=== PATIENT | female | born 1980 | race Caucasian/White ===

== ENCOUNTER 2023-10-15 10:40 | Outpatient (CLI) | payer BC, SELFPAY ==
--- OUTSIDE RECORDS SUMMARY | 2023-10-15 10:47 | XMS_ITS | Clinical Summary ---
Author Organization [facility] [email or web address] [facility] Address [place], [place] [address] Care Team Providers Care Hydrotreater Operator Name Role Phone Sayra Gadnhi DO Primary Care Provider Pramod Butler MD Unavailable Jennifer Avila MD Unavailable Sushma Trivedi WEB DESIGN INSTRUCTOR Unavailable Yessica Rodriguez RN Unavailable Lesa Wetzel RD Unavailable [phone] Kira Cooley Unavailable [phone] Allergies Active Allergy Reactions Criticality Noted Date Comments Kelly Hives High 05/21/2009 Hydromorphone Itching Medium 05/31/2006 Per patient, happened when she was getting significant doses on a [employer] pump Hydromorphone-Guaifenes in Rash 08/03/2022 Meperidine Rash,Itching Low 05/21/2009 Morphine Rash,Itching Low 05/21/2009 When on [employer] with 'high doses' per patient Nsaids (Non-Steroidal Anti-Inflammatory Drug) Other - Describe In Comment Field 09/28/2022 This patient has a history of a Samaria-en-Y gastric bypass. AVOID NSAIDs and aspirin due to risk of gastric and/or G-J anastomotic ulcers. If Lisa must be on short course of NSAIDs or aspirin, use enteric coated if possible and use PPI // Jerri Adam RN, Bariatric Nurse Clinician, [facility] Weight Management 09/28/2022. Medications Medication Sig Dispensed Refills Start Date End Date Status multivitamin pediatric chewable tabletIndications: Achlorhydria,Malab sorption due to intolerance, not elsewhere classified,S/P gastric bypass One tablet twice daily for an adult dose 0 Active mecobalamin, vitamin B12, 1,000 mcg TbDiIndications:Ac hlorhydria,Malabso rption due to intolerance, not elsewhere classified,S/P gastric bypass Place 1,000 mcg under the tongue once daily. 0 3 Active ondansetron (ZOFRAN ODT) 4 mg disintegrating tabletIndications: Depression with anxiety Place 1 Tablet (4 mg) on the tongue every 8 hours if needed for Nausea/Vomiting. 30 Tablet 1 3 Active atenoloL (TENORMIN) 25 mg tabletIndications: HTN (hypertension) Take 1 Tablet (25 mg) by mouth once daily. 90 Tablet 3 3 Active omeprazole (PRILOSEC) 40 mg Delayed-Release capsuleIndications :S/P gastric bypass Take 1 Capsule (40 mg) by mouth once daily before a meal. 90 Capsule 3 3 Active nystatin (MYCOSTATIN) topical creamIndications:I ntertriginous candidiasis,S/P gastric bypass Apply topically to affected area(s) two times daily. 30 g 3 Active nystatin powder (MYCOSTATIN) powderIndications: Intertriginous candidiasis,S/P gastric bypass Apply 1 Strip topically to affected area(s) 4 times daily if needed (rash). 60 g 3 3 Active cranberry/B.coagul an/C/calcium (CRANBERRY-PROBIOT IC ORAL) 3 Active valACYclovir (VALTREX) 1 gram tabletIndications: Herpes labialis Take 2 Tablets (2 g) by mouth two times daily. 4 Tablet 12 4 Active cholecalciferol, Vitamin D3, (Vitamin D-3) 2,000 unit tablet Take 2,000 units by mouth once daily. Active polyethylene glycoL (Miralax) 17 gram/scoop powderIndications: S/P gastric bypass Measure 17g in the cap provided and dissolve completely in 8 ounces of liquid as directed and drink once a day. Recommend using MiraLax in the first water bottle of the day. If no results, then increase to 2-3 doses per day until a bowel movement 714 g 3 4 Active methocarbamoL (ROBAXIN) 750 mg tabletIndications: Arthralgia, unspecified joint,Myalgia Take 1 tab twice daily. 60 Tablet 2 4 Active diclofenac topical (VOLTAREN) 1 % gelIndications:Acu te right-sided low back pain with right-sided sciatica Apply 4 g topically to affected area(s) 4 times daily if needed (back pain). 200 g 3 4 Active buPROPion (WELLBUTRIN XL) 300 mg Extended-Release tabletIndications: Depression with anxiety Take 1 Tablet (300 mg) by mouth once daily. 90 Tablet 3 4 Active venlafaxine (EFFEXOR XR) 150 mg Extended-Release capsuleIndications :Adjustment disorder with mixed anxiety and depressed mood Take 1 Capsule (150 mg) by mouth once daily with evening meal. 90 Capsule 3 4 Active gabapentin (NEURONTIN) 300 mg capsuleIndications :Lumbar radiculopathy Take 1 Capsule (300 mg) by mouth at bedtime. 30 Capsule 2 4 Active hydrOXYzine HCL (ATARAX) 25 mg tabletIndications: Adjustment disorder with mixed anxiety and depressed mood TAKE 1-2 TABLETS (25-50 MG) BY MOUTH EVERY 6 HOURS IF NEEDED FOR ANXIETY. 30 Tablet 4 Active acetaminophen SR (TYLENOL ARTHRITIS) 650 mg Extended-Release tabletIndications: Arthralgia, unspecified joint,Myalgia TAKE 2 TABLETS (1,300 MG) BY MOUTH EVERY 8 HOURS. MAX ACETAMINOPHEN DOSE: 4000MG IN 24 HRS. 100 Tablet 4 Active acetaminophen SR (TYLENOL ARTHRITIS) 650 mg Extended-Release tabletIndications: Arthralgia, unspecified joint,Myalgia Take 2 Tablets (1,300 mg) by mouth every 8 hours. Max acetaminophen dose: 4000mg in 24 hrs. 100 Tablet 1 4 024 Discontinued hydrOXYzine HCL (ATARAX) 25 mg tabletIndications: Adjustment disorder with mixed anxiety and depressed mood Take 1-2 Tablets (25-50 mg) by mouth every 6 hours if needed for Anxiety. 30 Tablet 2 4 024 Discontinued NaCl 0.9% 1000 mL IV solutionIndication s:Abdominal pain, epigastric Infuse 1000ml per hour at office visit. 1000 mL 4 024 cephalexin (KEFLEX) 500 mg capsuleIndications :Acute cystitis with hematuria Take 1 Capsule (500 mg) by mouth two times daily for 10 days. 20 Capsule 4 024 phenazopyridine (PYRIDIUM) 100 mg tabletIndications: Acute cystitis with hematuria Take 1 Tablet (100 mg) by mouth three times daily after meals for 2 days. 6 Tablet 4 024 Active Problems Patient Care Coordination No te Formatting of this note is d ifferent from the original. Weight Management - Adult Surgical Program Patient Received Binder: Yes Part of KTYA Program: no BEP or GS Patient: No Initial Consult / Established Care 08/15/[address] Pramod Deal RN Intake: Wt Readings from Last 1 Encounters: 08/19/21 116.6 kg (257 lb) lbs, Ht Readings from Last 1 Encounters: 08/19/21 1.575 m (5' 2.01) , Body mass index is 46.99 kg/m??. Planned Operation Samaria-en-Y Gastric Bypass Payor: MEDICAID [place] / Plan: MEDICAID / Product Type: *No Product type* / Insurance requirements:Pre-surgery medical clearance Est. Pgm Completion: ~ October, Procedure Location: [facility] Co-morbidities: hypertension Orders: Labs Yes Imaging / Procedures NA Pre-Surgery Program Consults: - Registered Dietitian 3 - Psychological Evaluation: TBD Referrals: Yes - - PT: -Tobacco Cessation: reports that she quit smoking about 9 years ago. Her smoking use included cigarettes. She has a 3.75 pack-year smoking history. She has never used smokeless tobacco. Future Appointments Date Time Provider Department Center 09/09/2021 10:30 AM Lesa Wetzel, SRIKANTH ANBWBA ANBW Problem Noted Date Diagnosed Date Medical cannabis use 06/30/2023 S/P robotic samaria-en-y gastri c bypass, takedown of previous Joy fundoplication, hiatal hernia repair 09/23/2022 Overview: Dr. Butler Morbid obesity with BMI of 45.0-49.9, adult 07/28 Screening for endocrine, metabolic and immunity disorder 08/15/2021 Severe episode of recurrent major depressive disorder, without psychotic features 05/05/2021 Benign essential tremor 05/05/2021 Vision loss of right eye 09/30/2020 Overview: 07/2020, spontaneous bleed. Followed by ophthalmology COVID-19 virus infection 02/15/2020 Left elbow pain 04/26/2019 Contusion of left elbow 04/26/2019 Contusion of left ulnar nerve 04/26/2019 Numbness and tingling 07/13/2018 Carpal tunnel syndrome on left 07/13/2018 Carpal tunnel syndrome on right 07/13/2018 Trigger finger, right middle finger 06/15/2018 Thumb pain, left 06/15/2018 Delayed wound healing 12/15/2017 Overview: Right breast wound, s/p cyst removal Epidermal inclusion cyst 10/25/2017 Controlled substance agreement signed 08/12/2017 Cyst, breast, right 02/25/2017 Fluid level behind tympanic membrane of left ear 07/08/2016 Decreased hearing of left ear 07/08/2016 Leucocytosis 12/03/2015 HTN (hypertension) 12/02/2015 Gastroesophageal reflux disease without esophagi tis 12/02/2015 H/O cold sores 12/02/2015 Chronic back pain 12/02/2015 Adjustment disorder with mixed anxiety and depre ssed mood 12/01/2015 Alcohol use disorder, mild, abuse 12/01/2015 Eczema of both hands 09/13/2015 Acute right-sided low back pain without sciatica 09/13/2015 Numbness and tingling in both hands 09/13/2015 Sepsis 05/29/2015 Palpitations 12/20/2013 Weight gain 12/20/2013 Sensorineural hearing loss, unilateral 3 Overview: left low frequency from 250 to 750 Hz Subjective tinnitus 06/28/2012 Elevated LFTs 03/07/2012 Depression with anxiety 02/19/2010 Recurrent cold sores 02/17/2008 HIATAL HERNIA 05/31/2006 STRESS 05/31/2006 CHRONIC CONSTIPATION 05/31/2006 Esophageal reflux 05/31/2006 Overview: EGD 04/2010 normal Resolved Problems Problem Noted Date Diagnosed Date Resolved Date Substance or medication-pam claudy anxiety disorder 12/01/2015 10/20/2021 Caffeine dependence 12/01/2015 05/05/19 Strep pharyngitis 05/29/2015 09/30/2020 Elevated blood pressure 12/20/201310/28 Family history of sudden hearing loss 06/28/2012 12/20/2013 Overview: brother and aunt with similar symptoms Abdominal pain, epigastric 03/07/2012 0 12/20/2013 Status post Joy fundoplic ation (without gastrostomy tube) procedure 05/09/2010 12/20/2013 Other disorder of menstruati on and other abnormal bleeding from female genital tract 11/24/2007 05/08/2011 Threatened premature labor, unspecified as to episode of care 01/15/2007 02/17/2008 Overview: Both prior pregnancies with PTL, delivered quickly, but at term. Breech presentation without mention of version, antepartum 01/15/2007 02/17/2008 Overview: Jeremie breech at admission 01/15/07 Encounters Date Type Department Care Team Description 10/02/2023 Refill [facility] [address] [place] [address] Sayra Gandhi DO Refill Request (Hydroxyzine Hcl, Acetaminophen Sr) 09/24/2023 8:20 AM CDT Office Visit [facility] [address] [place] [address] Melvin Hernández MD Musculoskeletal Problem (Back pain) 09/23/2023 8:13 PM CDT - 09/23/2023 9:05 PM CDT Emergency [facility] [address] [place] [address] Alexi Goldstein PA Acute cystitis with hematuria (Primary Dx) Discharge Disposition: Home Self Care 09/23/2023 Travel 09/21/2023 Orders Only [facility] [address] [place] [address] Ni Macias NP 1 scan: (1-Ord) 09/20/2023 09/20/2023 1:40 PM CDT - 09/20/2023 11:59 PM CDT Hospital Encounter [facility] [address] [place] [address] Ni Macias NP Abdominal pain, epigastric 09/20/2023 12:55 PM CDT Office Visit [facility] [address] [place] [address] Ni Macias NP Abdominal Pain 09/20/2023 11:30 AM CDT Office Visit [facility] [address] [place] [address] Sayra Gandhi DO Abdominal Pain (upper gastric pain, no energy, no appetite, lost 4 lbs since the weekend. dehydrated ) 09/20/2023 Travel 09/01/2023 9:20 AM CDT Orders Only [facility] [address] [place] [address] Lab, [facility] 09/01/2023 Travel 08/27/2023 Telephone [facility] [address] [place] [address] Sayra Gandhi DO Screening (Spine Center) 08/25/2023 8:19 AM CDT - 08/25/2023 11:59 PM CDT Hospital Encounter [facility] [address] [place] [address] Sayra Gandhi DO Acute right-sided low back pain with right-sided sciatica 08/25/2023 Travel 08/19/2023 8:14 PM CDT - 08/19/2023 9:13 PM CDT Emergency [facility] [address] [place] [address] Bonita Garcia, SHOLA Acute cystitis with hematuria (Primary Dx) Discharge Disposition: Home Self Care 08/19/2023 Travel 08/11/2023 7:30 AM CDT Office Visit [facility] [address] [place] [address] Sayra Gandhi, DO Medication Management 08/11/2023 Travel from Last 3 Months Immunizations Name Administration Dates Next Due COVID-19 vaccine (MicroPort ([place]) NTFoodFan 30mcg/0.3mL) PF, MDV 06/04/2020,05/14/2020 Hepatitis B (Adult) 04/23/2015,11/22/2014,1997 Influenza A (H1N1), Live Intranasal 01/24/2009 Influenza, IIV3 (Age >=3 years) 02/14/20 13,03/25/2012,01/24/2010, 009,02/14/2008,01/05/2007 Influenza, IIV4 12/29/2022, 2,01/23/2021, 018,01/29/2017,12/06/2015,11/22/2014, Influenza, IIV4 (=>6mos) MDV 01/07/2019 Influenza, Injectable, Mdck, Quadrivalent, W/preservative 12/20/2017 MMR 12/27/1992,07/24/1992,05/26/1982 Td (Age >=7 Years) 02/08/2002 Tdap 09/03/2018,05/22/2010 Tuberculin (PPD) 11/20/2015 Family History Medical History Relation Name Comments Anxiety disorder Brother 1 Depression Brother 1 Other Brother 1 Acoustic neurom as Anxiety disorder Brother 2 Depression Brother 2 No Known Problems Daughter Depression Father Hypertension Father Other Father ONE KIDNEY DUE TO ACCIDENT Cancer-breast Maternal Aunt Cancer Maternal Grandfather not [place] e what type of cancer Hyperlipidemia Maternal Grandfather Hypertension Maternal Grandfather Diabetes Maternal Grandmother Hypertension Maternal Grandmother Stroke Maternal Grandmother Leukemia Maternal Uncle Depression Mother Hypertension Mother Unknown Paternal Aunt estrandged - u nkown medical history Hyperlipidemia Paternal Grandfather Hypertension Paternal Grandfather Stroke Paternal Grandmother Unknown Paternal Uncle estrandged - unkown medical history Anxiety disorder Son 1 Depression Son 1 ADD / ADHD Son 2 Anxiety disorder Son 2 Depression Son 2 Relation Name Status Comments Brother 1 Alive Brother 2 Alive Daughter Alive Father Alive Maternal Aunt Alive Maternal Grandfather Maternal Grandmother Maternal Uncle Mother Alive Paternal Aunt Alive Paternal Grandfather Paternal Grandmother Paternal Uncle Alive Son 1 Alive Son 2 Alive Social History Tobacco Use Types Packs/Day Years Used Date Smoking Tobacco: Former Cigarettes 0.3 15 0 05/14/1997 - 05/14/2012 Passive Smoke Exposure: Never Smokeless Tobacco: Never Tobacco Cessation:Counseling Given: No Alcohol Use Standard Drinks/Week Comments Not Currently 0 (1 standard drink = 0.6 oz pure alcohol) 2014, quit drinking 03/2021 PHQ-2 Answer Date Recorded PHQ-2 TOTAL SCORE 3 11/13/2022 Social Connections Answer Date Recorded Frequency of Communication with Friends and Fami ly 0 06/30/2023 Financial Resource Strain Answer Date R ecorded Difficulty of Paying Living Expenses 2 06/30/2023 Difficulty of Paying Living Expenses 1 06/30/2023 Food Insecurity Answer Date Recorded Worried About Running Out of Food in the Last Ye ar 1 06/30/2023 Transportation Needs Answer Date Record ed Lack of Transportation (Medical) 1 06/30/2023 Housing Stability Answer Date Recorded Unable to Pay for Housing in the Last Year 1 06/30/2023 Sex and Gender Information Value Date Recorded Sex Assigned at Not on file Gender Identity Not on file Sexual Orientation Not on file Obstetrics History Para Term AB IAB SAB Ectopic Multiple Livin g Live Births 4 3 2 0 1 1 3 Date Outcome GA Total Labor Labor/2nd/3rd Weight Sex Type Anes PTL Bhavani A1 A5 Name Clin Term Term SAB Para Last Filed Vital Signs Vital Sign Reading Time Taken Comments Blood Pressure 108/73 09/24/2023 8:13 AM CDT Pulse 66 09/24/2023 8:13 AM CDT Temperature 36.9 ??C (98.4 ??F) 09/24/2023 8:13 AM CD T Respiratory Rate 20 09/23/2023 8:19 PM CDT Oxygen Saturation 99% 09/24/2023 8:13 AM CDT Inhaled Oxygen Concentration - - Weight 68.1 kg (150 lb 3.2 oz) 09/24/2023 8:13 A M CDT Height 157.5 cm (5' 2) 09/23/2023 8:19 PM CDT Body Mass Index 27.47 09/23/2023 8:19 PM CDT Plan of Treatment Upcoming Encounters Date Type Department Care Team (Late st Contact Info) Description 10/15/2023 11:20 AM CDT Office Visit [facility] [address] [place] [address] Melvin Hernández MD [address] [place] [address] Arrived 11/04/2023 7:50 AM CDT Office Visit [address] [address] Sayra Gandhi DO [address] [place] [address] 11/11/2023 8:40 AM CDT Office Visit [facility] [address] [place] [address] Melvin Hernández MD [address] [place] [address] Health Maintenance Due Date Last Done Comments Pneumococcal series for age 6-64 (1 of 2 - PCV) 11/28/1985 Depression screening for age 12+ 11/17/2023 11/16/2022, 11/13/2022, 11/13/2022, Additional history exists Influenza for age 9-49 11/28/2023 , 01/23/2022, 01/23/2021, Additional history exists BMI (ht and wt on same day) for age 18+ 04/23/2024 04/23/2023, 03/16/2023, 03/16/2023, Additional history exists Tetanus booster 09/03/2028 09/03/2018, 04/30, 02/08/2002 HIV for age 15-65 Completed 05/22/2010 Hepatitis C screening for ag e 18-79 Completed 05/22/2010 Tdap Completed 09/03/2018, 05/22/2010 COVID-19 vaccine series Completed 01/27/20, 08/10/2022, 12/23/2021, Additional history exists Procedures Procedure Name Priority Date/Time Associated Diagnosis Comments AMB EPIDURAL STEROID INJECTION Routine 10/15/2023 8:23 AM CDT DDD (degenerative disc disease), lumbar Lumbar disc herniation Lumbar radiculopathy Trochanteric bursitis of right hip URINE CULTURE HA 09/23/2023 8:17 PM CDT URINALYSIS MICROSCOPIC STAT 09/23/2023 8:17 PM CDT UA W/ SEDIMENT EXAM REFLEXED PER CRITERIA STAT 09/23/2023 8:[address] ABDOMEN PELVIS W STAT 09/20/2023 2 :54 PM CDT Abdominal pain, epigastric UA W/ SEDIMENT EXAM REFLEXED PER CRITERIA Routine 09/20/2023 2:03 PM CDT Abdominal pain, epigastric CWS PATH REVIEW HEMATOLOGY Routine 09/20/2023 1:56 PM CDT Abdominal pain, epigastric RED CELL MORPHOLOGY Routine 09/20/2023 1 :56 PM CDT Abdominal pain, epigastric PLATELET ESTIMATE Routine 09/20/2023 1:5 6 PM CDT Abdominal pain, epigastric MANUAL DIFFERENTIAL Routine 09/20/2023 1 :56 PM CDT Abdominal pain, epigastric CBC WITH AUTO DIFFERENTIAL Routine 09/20/2023 1:56 PM CDT Abdominal pain, epigastric C-REACTIVE PROTEIN Routine 09/20/2023 1: 56 PM CDT Abdominal pain, epigastric LIPASE Routine 09/20/2023 1:56 PM CDT Abdominal pain, epigastric COMP METABOLIC PANEL Routine 09/20/2023 1:56 PM CDT Abdominal pain, epigastric CBC WITH AUTO DIFFERENTIAL Routine 09/20/2023 1:56 PM CDT Abdominal pain, epigastric EKG 12 LEAD Routine 09/20/2023 12:00 AM CDT Abdominal pain, epigastric URINE CULTURE Routine 09/01/2023 10:05 AM CDT Hematuria, unspecified type UA W/ SEDIMENT EXAM REFLEXED PER CRITERIA Routine 09/01/2023 10:05 AM CDT Hematuria, unspecified type MR SPINE LUMBAR WO Routine 08/25/2023 9: 19 AM CDT Acute right-sided low back pain with right-sided sciatica URINE CULTURE HA 08/19/2023 8:22 PM CDT URINALYSIS MICROSCOPIC STAT 08/19/2023 8:22 PM CDT UA W/ SEDIMENT EXAM REFLEXED PER CRITERIA STAT 08/19/2023 8:22 PM CDT CBC WITH AUTO DIFFERENTIAL Routine 08/11/2023 8:16 AM CDT S/P robotic samaria-en-y gastric bypass, takedown of previous Joy fundoplication, hiatal hernia repair COMP METABOLIC PANEL Routine 08/11/2023 8:16 AM CDT S/P robotic samaria-en-y gastric bypass, takedown of previous Joy fundoplication, hiatal hernia repair CBC WITH AUTO DIFFERENTIAL Routine 08/11/2023 8:16 AM CDT S/P robotic samaria-en-y gastric bypass, takedown of previous Joy fundoplication, hiatal hernia repair VITAMIN B12 Routine 08/11/2023 8:16 AM CDT S/P robotic samaria-en-y gastric bypass, takedown of previous [place] fundoplication, hiatal hernia repair FERRITIN Routine 08/11/2023 8:16 AM CDT S/P robotic samaria-en-y gastric bypass, takedown of previous Joy fundoplication, hiatal hernia repair VITAMIN D 25 (DEFICIENCY) Routine 08/11/2023 8:16 AM CDT S/P robotic samaria-en-y gastric bypass, takedown of previous Joy fundoplication, hiatal hernia repair ANTI HIV 1/2 Routine 05/22/2010 9:48 AM 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 RBC >100(A) 0-2, None Seen /HPF 09/23/2023 8:36 PM T [facility] WBC 11-25(A) 0-2, 3-5, None Seen /HPF 09/23/2023 8:36 PM T [facility] BACTERIA Many(A) None Seen, Rare, Few Bacteria/ HPF 09/23/2023 8:36 PM T [facility] EPITHELIAL CELLS Few None Seen, Few Epi/HPF 09/23/2023 8:36 PM T [facility] WHITE CELL CLUMPS Present(A) (none) 09/23/2023 8:36 PM T [facility] Urine URINE SPECIMEN / Unknown Non-Blood / Unknown 09/23/2023 8:17 PM CDT 09/23/2023 8:21 PM CDT Alexi ESPINOSA URINE Performing Organization Address [facility] Co de Phone Number [facility] [address] [facility] [place] [address] * (ABNORMAL) URINE CULTURE (09/23/2023 8:17 PM CDT) Only the most recent of3 resultswithin the time period is included. CULTURE RESULT(A) 09/25/2023 7:46 AM CDT [facility] CULTURE 10,000-50,000 CFU/mL Escherichia coli 09/25/2023 7:46 AM CDT [facility] CULTURE <10,000 CFU/mL Multiple organisms probable contaminants 09/25/2023 7:46 AM CDT [facility] Urine URINE SPECIMEN / Unknown Non-Blood / Unknown 09/23/2023 8:17 PM CDT 09/23/2023 8:21 PM CDT Narrative Organism Antibiotic Method Susceptibility Escherichia coli TRIMETHOPRIM/SULF <=/19: S Escherichia coli AMPICILLIN 8: S Escherichia coli CEFAZOLIN 2: S Escherichia coli CEFAZOLIN-UC 2: S Comment:Cefazolin-UC interpretations are for therapy of uncomplicated UTIs due to E.coli, K.pneumoniae, or P.mirablis. Cefazolin breakpoint is used as a surrogate to predict results for the oral agents - cefdinir, cefuroxime, and cephalexin, when used for therapy of uncomplicated UTIs due to E coli, K, pneumoniae, and P. mirabilis. The FDA recommends cefadroxil susceptibility can be deduced from cefazolin. Escherichia coli GENTAMICIN <=1: S Escherichia coli CEFTRIAXONE <=0.25: S Escherichia coli CEFTAZIDIME <=0.5: S Escherichia coli LEVOFLOXACIN <=0.12: S Escherichia coli CIPROFLOXACIN <=0.06: S Escherichia coli PIPERACILLIN/TAZO <=4: S Escherichia coli AMPICILLIN/SULBACTAM 4: S Escherichia coli CEFEPIME <=0.12: S Escherichia coli MEROPENEM <=0.25: S Escherichia coli NITROFURANTOIN <=16: S Alexi ESPINOSA MICROBIOLOG Y [facility] [address] [place] [address], [place] * (ABNORMAL) UA W/ SEDIMENT EXAM REFLEXED PER CRITERIA (09/23/2023 8:17 PM CDT) Only the most recent of4 resultswithin the time period is included. COLOR Red(A) Yellow Color 09/23/2023 8:36 PM [facility] CLARITY Cloudy(A) Clear Clarity 09/23/2023 8:36 PM [facility] SPECIFIC GRAVITY,URINE 1.010 1.010, 1.015, 1.020, 1.025 09/23/2023 8:36 PM [facility] PH,URINE Unable to interpret due to interfering substance(A) 6.0, 7.0, 8.0, 5.5, 6.5, 7.5, 8.5 09/23/2023 8:36 PM [facility] UROBILINOGEN,Q UALITATIVE Unable to interpret due to interfering substance(A) Normal EU/dl 09/23/2023 8:36 PM [facility] PROTEIN, URINE Unable to interpret due to interfering substance(A) Negative mg/dL 09/23/2023 8:36 PM [facility] GLUCOSE, URINE Unable to interpret due to interfering substance(A) Negative mg/dL 09/23/2023 8:36 PM [facility] KETONES,URINE Unable to interpret due to interfering substance(A) Negative mg/dL 09/23/2023 8:36 PM [facility] BILIRUBIN,URIN E Unable to interpret due to interfering substance(A) Negative 09/23/2023 8:36 PM [facility] Comment:A variety of metabol ites and/or medications may result in a positive bilirubin result. Clinical correlation is recommended. OCCULT BLOOD,URINE Unable to interpret due to interfering substance(A) Negative 09/23/2023 8:36 PM [facility] NITRITE Unable to interpret due to interfering substance(A) Negative 09/23/2023 8:36 PM [facility] LABORATORY LEUKOCYTE ESTERASE Unable to interpret due to interfering substance(A) Negative 09/23/2023 8:36 PM CDT [facility] Urine URINE SPECIMEN / Unknown Non-Blood / Unknown 09/23/2023 8:17 PM CDT 09/23/2023 8:21 PM CDT Alexi ESPINOSA URINE [facility] [address] [place] [address] * CT ABDOMEN PELVIS W (09/20/2023 2:54 PM CDT) Anatomical Region Laterality Modality Abdomen, Pelvis, AORTA, LIVER, SPLEEN Computed Tomography 09/20/2023 3:33 PM CDT Impressions 09/20/2023 3:33 PM CDT 1. There may be mild wall thickening and hyperenhancement of several loops of nondistended, fluid-filled small bowel in the left hemipelvis, raising the possibility of an underlying nonspecific infectious versus inflammatory enteritis. 2. Postsurgical changes from a prior Samaria-en-Y gastric bypass surgery. No bowel obstruction. 3. Diffuse hepatic steatosis. Please note that all CT scans at this facility use dose modulation, iterative reconstruction, and/or weight-based dosing when appropriate to reduce radiation dose to as low as reasonably achievable. Dictated by Bran Friedman MD @ 09/20/2023 3:33:59 PM (Electronically Signed) Narrative 09/20/2023 3:33 PM CDT For Patients: ??As a result of the 21st Century Cures Act, medical imaging exams and procedure reports are released immediately into your electronic medical record. ??You may view this report before your referring provider. ??If you have questions, please contact your health care provider. INDICATION: Abdominal pain. TECHNIQUE: Multiplanar CT examination of the abdomen and pelvis was performed after the administration of 100 mL Omnipaque 300 intravenous contrast. COMPARISON: CT abdomen pelvis 11/13/2022. FINDINGS: Lower chest: No focal consolidation. Normal heart size. No pleural effusions or pneumothorax. Subsegmental atelectasis. Liver: Diffuse hepatic steatosis. ??Hypodensity within the right hepatic dome lobe possibly hemangioma versus simple hepatic cyst. Gallbladder: Cholecystectomy. Biliary: Unremarkable. Pancreas: Within normal limits. Spleen: Unremarkable. Adrenal glands: Unremarkable. Renal/ureters/bladder: Normal in size and symmetrically enhancing. No obstructive uropathy. No hydronephrosis or obstructive urinary calculi. No suspicious renal masses. The ureters appear unremarkable. The bladder is within normal limits. Pelvis: ??Nonvisualized uterus, likely hysterectomy. Correlate with surgical history. 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 No bowel obstruction. No there is questionable wall thickening and hyperenhancement involving several loops of nondistended, fluid-filled small bowel in the left hemipelvis. Nonvisualized appendix. No significant colonic diverticulosis. Mild colonic stool burden. Vasculature: No aortic aneurysm. The portal vein remains patent. No significant atherosclerotic calcifications. Lymph nodes: No pathologic lymphadenopathy by size criteria. Peritoneum: No free fluid or pneumoperitoneum. No drainable fluid collections. Abdominal wall/soft tissues: Unremarkable. Ventral abdominal laparotomy scar. Bones: No acute osseous abnormalities. Multilevel degenerative changes of the thoracolumbar spine with severe degenerative disc disease again noted at L5-S1. Procedure Note Bran Friedman, DO - 09/20/2023 For Patients: As a result of the Cures Act, medical imagingexams and procedure reports are released immediately into your electronicmedical record. You may view this report before your referring provider.If you have questions, please contact your health care provider. INDICATION: Abdominal pain. TECHNIQUE: Multiplanar CT examination of the abdomen and pelvis was performed afterthe administration of 100 mL Omnipaque 300 intravenous contrast. COMPARISON: CT abdomen pelvis 11/13/2022. FINDINGS: Lower chest: No focal consolidation. Normal heart size. No pleuraleffusions or pneumothorax. Subsegmental atelectasis. Liver: Diffuse hepatic steatosis. Hypodensity within the right hepaticdome lobe possibly hemangioma versus simple hepatic cyst. Gallbladder: Cholecystectomy. Biliary: Unremarkable. Pancreas: Within normal limits. Spleen: Unremarkable. Adrenal glands: Unremarkable. Renal/ureters/bladder: Normal in size and symmetrically enhancing. Noobstructive uropathy. No hydronephrosis or obstructive urinary calculi. Nosuspicious renal masses. The ureters appear unremarkable. The bladder iswithin normal limits. Pelvis: Nonvisualized uterus, likely hysterectomy. Correlate withsurgical history. Gastrointestinal: Postsurgical changes from prior Samaria-en-Y gastric bypasssurgery. No bowel obstruction. No there is questionable wall thickeningand hyperenhancement involving several loops of nondistended, fluid-filledsmall bowel in the left hemipelvis. Nonvisualized appendix. No significantcolonic diverticulosis. Mild colonic stool burden. Vasculature: No aortic aneurysm. The portal vein remains patent. Nosignificant atherosclerotic calcifications. Lymph nodes: No pathologic lymphadenopathy by size criteria. Peritoneum: No free fluid or pneumoperitoneum. No drainable fluidcollections. Abdominal wall/soft tissues: Unremarkable. Ventral abdominal laparotomyscar. Bones: No acute osseous abnormalities. Multilevel degenerative changes ofthe thoracolumbar spine with severe degenerative disc disease again notedat L5-S1. IMPRESSION: 1. There may be mild wall thickening and hyperenhancement of several loopsof nondistended, fluid-filled small bowel in the left hemipelvis, raisingthe possibility of an underlying nonspecific infectious versusinflammatory enteritis. 2. Postsurgical changes from a prior Samaria-en-Y gastric bypass surgery. Nobowel obstruction. 3. Diffuse hepatic steatosis. Please note that all CT scans at this facility use dose modulation,iterative reconstruction, and/or weight-based dosing when appropriate toreduce radiation dose to as low as reasonably achievable. Dictated by Bran Friedman MD @ 09/20/2023 3:33:59 PM (Electronically Signed) Ni Macias NP CT * CWS PATH REVIEW HEMATOLOGY (09/20/2023 1:56 PM CDT) PATH COMMENT Reviewed by Deirdre Chan MT, (ASCP) on 09/24/2023 09/25/2023 12:42 PM CDT [facility] Blood BLOOD SPECIMEN / Unknown Venipuncture / Unknown 09/20/2023 1:56 PM CDT 09/20/2023 1:56 PM CDT Narrative [facility] - 09/25/2023 12:42 PM CDT Ni Macias NP LABORATORY [facility] [address] [place] [address], * CBC WITH AUTO DIFFERENTIAL (09/20/2023 1:56 PM CDT) Only the most recent of2 resultswithin the time period is included. WHITE BLOOD COUNT 9.7 4.5 - 11.0 thou/cu mm 09/20/2023 2:25 PM CDT [facility] RED BLOOD COUNT 4.32 4.00 - 5.20 mil/cu mm 09/20/2023 2:25 PM CDT [facility] HEMOGLOBIN 13.2 12.0 - 16.0 g/dL 09/20/2023 2:25 PM CDT [facility] HEMATOCRIT 40.1 33.0 - 51.0 % 09/20/2023 2:25 PM CDT [facility] MCV 93 80 - 100 fL 09/20/2023 2:25 PM CDT [facility] MCH 30.6 26.0 - 34.0 pg 09/20/2023 2:25 PM CDT [facility] MCHC 32.9 32.0 - 36.0 g/dL 09/20/2023 2:25 PM CDT [facility] RDW 12.1 11.5 - 15.5 % 09/20/2023 2:25 PM CDT [facility] PLATELET COUNT 336 140 - 440 thou/cu mm 09/20/2023 2:25 PM CDT [facility] MPV 9.9 6.5 - 11.0 fL 09/20/2023 2:25 PM CDT [facility] Blood BLOOD SPECIMEN / Unknown Venipuncture / Unknown 09/20/2023 1:56 PM CDT 09/20/2023 1:56 PM CDT Ni Macias NP HEMATOLOGY [facility] [address] [place] [address] * RED CELL MORPHOLOGY (09/20/2023 1:56 PM CDT) [facility] RBC COMMENT RBC morphology appears normal RBC morphology appears normal, RBC morphology within normal limits for newborns. 09/20/2023 2:25 PM CDT [facility] LARGE PLATELETS Present 09/20/2023 2:25 PM CDT [facility] Blood BLOOD SPECIMEN / Unknown Venipuncture / Unknown 09/20/2023 1:56 PM CDT 09/20/2023 1:56 PM CDT Ni Macias NP HEMATOLOGY [facility] [address] [place] [address] * PLATELET ESTIMATE (09/20/2023 1:56 PM CDT) [facility] PLATELET ESTIMATE Adequate Adequate, No estimate 09/20/2023 2:25 PM CDT [facility] Blood BLOOD SPECIMEN / Unknown Venipuncture / Unknown 09/20/2023 1:56 PM CDT 09/20/2023 1:56 PM CDT Ni Macias NP HEMATOLOGY [facility] [address] [place] [address] * (ABNORMAL) MANUAL DIFFERENTIAL (09/20/2023 1:56 PM CDT) [facility] % NEUTROPHILS 28.0 % 09/20/2023 2:25 PM CDT [facility] % LYMPHOCYTES 66.0 % 09/20/2023 2:25 PM CDT [facility] % MONOCYTES 5.0 % 09/20/2023 2:25 PM CDT [facility] % EOSINOPHILS 1.0 % 09/20/2023 2:25 PM CDT [facility] % BASOPHILS 0.0 % 09/20/2023 2:25 PM CDT [facility] NEUTROPHILS ABSOLUTE 2.7 1.7 - 7.0 thou/cu mm 09/20/2023 2:25 PM CDT [facility] LYMPHOCYTES ABSOLUTE 6.4(H) 0.9 - 2.9 thou/cu mm 09/20/2023 2:25 PM CDT [facility] MONOCYTES ABSOLUTE 0.5 <0.9 thou/cu mm 09/20/2023 2:25 PM CDT [facility] EOSINOPHILS ABSOLUTE 0.1 <0.5 thou/cu mm 09/20/2023 2:25 PM CDT [facility] BASOPHILS ABSOLUTE 0.0 <0.3 thou/cu mm 09/20/2023 2:25 PM CDT [facility] Blood BLOOD SPECIMEN / Unknown Venipuncture / Unknown 09/20/2023 1:56 PM CDT 09/20/2023 1:56 PM CDT Ni Macias NP HEMATOLOGY Performing Organization Address City/[facility]/ZIP Co de Phone Number [facility] [address] [place] [address] * C-REACTIVE PROTEIN (09/20/2023 1:56 PM CDT) Pathologist [facility] C-REACTIVE PROTEIN <0.3 <0.5 mg/dL 09/20/2023 2:26 PM CDT [facility] Blood BLOOD SPECIMEN / Unknown Venipuncture / Unknown 09/20/2023 1:56 PM CDT 09/20/2023 1:56 PM CDT Ni Macias NP CHEMISTRY [facility] [address] [place] [address] * LIPASE (09/20/2023 1:56 PM CDT) LIPASE 29.3 13.0 - 60.0 IU/L 09/20/2023 2:24 PM CDT [facility] Blood BLOOD SPECIMEN / Unknown Venipuncture / Unknown 09/20/2023 1:56 PM CDT 09/20/2023 1:56 PM CDT Ni Macias NP CHEMISTRY [facility] [address] [place] [address] * COMP METABOLIC PANEL (09/20/2023 1:56 PM CDT) Only the most recent of2 resultswithin the time period is included. SODIUM 139 136 - 145 mmol/L 09/20/2023 2:24 PM [facility] POTASSIUM 4.2 3.5 - 5.1 mmol/L 09/20/2023 2:24 PM [facility] CHLORIDE 103 98 - 107 mmol/L 09/20/2023 2:24 PM [facility] CO2,TOTAL 28 22 - 29 mmol/L 09/20/2023 2:24 PM [facility] ANION GAP 8 5 - 18 09/20/2023 2:24 PM [facility] GLUCOSE 85 70 - 99 mg/dL 09/20/2023 2:24 PM [facility] CALCIUM 9.4 8.6 - 10.0 mg/dL 09/20/2023 2:24 PM [facility] BUN 10 6 - 20 mg/dL 09/20/2023 2:24 PM [facility] CREATININE 0.61 0.50 - 0.90 mg/dL 09/20/2023 2:24 PM [facility] BUN/CREAT RATIO 16 10 - 20 2:24 PM [facility] eGFR >90 >90 mL/min/1.7 3m2 09/20/2023 2:24 PM [facility] Comment:As of 2021, eG FR is calculated by the CKD-EPI creatinine equation without race adjustment. ??eGFR can be influenced by muscle mass, exercise, and diet. ??The reported eGFR is an estimation only and is only applicable if the renal function is stable. ALBUMIN 4.0 4.0 - 4.9 g/dL 09/20/2023 2:24 PM CDT [facility] PROTEIN,TOTAL 6.8 6.0 - 8.0 g/dL 09/20/2023 2:24 PM CDT [facility] BILIRUBIN,TOTAL 0.3 0.0 - 1.2 mg/dL 09/20/2023 2:24 PM CDT [facility] ALK PHOSPHATASE 79 35 - 104 IU/L 09/20/2023 2:24 PM CDT [facility] ALT (SGPT) 20 10 - 35 IU/L 09/20/2023 2:24 PM CDT [facility] AST (SGOT) 23 10 - 35 IU/L 09/20/2023 2:24 PM CDT [facility] Blood BLOOD SPECIMEN / Unknown Venipuncture / Unknown 09/20/2023 1:56 PM CDT 09/20/2023 1:56 PM CDT Ni Macias NP CHEMISTRY [facility] [address] [place] [address] * EKG 12 LEAD (09/20/2023 12:00 AM CDT) Ni Macias NP EKG ORD * MR SPINE LUMBAR WO (08/25/2023 9:19 AM CDT) Anatomical Region Laterality Modality Spine, LUMBAR SPINE Magnetic Res onance 08/25/2023 1:15 PM CDT Narrative 08/25/2023 1:15 PM CDT For Patients: ??As a result of the 21st Century Cures Act, medical imaging exams and procedure reports are released immediately into your electronic medical record. ??You may view this report before your referring provider. ??If you have questions, please contact your health care provider. Indication: Acute right-sided low back pain. Right sciatica. Technique: Noncontrast MRI scan of the lumbar spine. Comparison: None. Findings: General: Unremarkable lower thoracic cord. Normal conus termination at the superior endplate of L1. L3 benign vertebral hemangioma. Modic type 2 endplate signal change at L5-S1 disc space. No fracture or suspicious bone lesion. Normal paraspinal soft tissues. Disc levels: L1-L2: Minimal retrolisthesis of L1. Otherwise unremarkable disc. No disc protrusion or nerve root impingement. Intact facet joints. L2-L3: Mild bilateral foraminal focal disc bulges. No focal disc protrusion or nerve root impingement. Mild bilateral facet hypertrophy. No spinal stenosis. Patent neural foramina. L3-L4: Mild disc space height loss and decreased disc signal. Posterior broad- based disc protrusion. No focal disc protrusion or nerve root impingement. Mild bilateral facet hypertrophy. Mild spinal stenosis. Mild bilateral foraminal stenosis. L4-L5: Mild decreased disc signal. Posterior broad-based disc protrusion and right posterior paracentral focal disc bulge. Protruding disc material abuts and may slightly displace the right L5 nerve root (image 25, series 8). Bilateral facet hypertrophy and ligamentum flavum thickening. Mild spinal stenosis. Mild bilateral foraminal stenosis. L5-S1:Disc space height loss. Posterior broad-based disc protrusion/extrusion. Disc material abuts the right and left S1 nerve roots but does not definitely displace either (image 30, series 8). Bilateral facet hypertrophy. Mild spinal stenosis. Moderate bilateral foraminal stenosis, worse on the right. Impression: 1. Degenerative disc disease and facet arthrosis of the lumbar spine as detailed above. 2. At L4-L5 protruding disc material abuts and may slightly displace the right L5 nerve root. 3. At L5-S1 protruding disc material abuts but does not definitely displace either S1 nerve root. Dictated by Pramod Rudolph MD @ 08/25/2023 1:15:45 PM (Electronically Signed) Procedure Note Pramod Rudolph MD - 08/25/2023 For Patients: As a result of the Century Cures Act, medical imagingexams and procedure reports are released immediately into your electronicmedical record. You may view this report before your referring provider.If you have questions, please contact your health care provider. Indication: Acute right-sided low back pain. Right sciatica. Technique: Noncontrast MRI scan of the lumbar spine. Comparison: None. Findings: General: Unremarkable lower thoracic cord. Normal conus termination at thesuperior endplate of L1. L3 benign vertebral hemangioma. Modic type 2endplate signal change at L5-S1 disc space. No fracture or suspicious bonelesion. Normal paraspinal soft tissues. Disc levels: L1-L2: Minimal retrolisthesis of L1. Otherwise unremarkable disc. No discprotrusion or nerve root impingement. Intact facet joints. L2-L3: Mild bilateral foraminal focal disc bulges. No focal discprotrusion or nerve root impingement. Mild bilateral facet hypertrophy. Nospinal stenosis. Patent neural foramina. L3-L4: Mild disc space height loss and decreased disc signal. Posteriorbroad- based disc protrusion. No focal disc protrusion or nerve rootimpingement. Mild bilateral facet hypertrophy. Mild spinal stenosis. Mildbilateral foraminal stenosis. L4-L5: Mild decreased disc signal. Posterior broad-based disc protrusionand right posterior paracentral focal disc bulge. Protruding disc materialabuts and may slightly displace the right L5 nerve root (image 25, series8). Bilateral facet hypertrophy and ligamentum flavum thickening. Mildspinal stenosis. Mild bilateral foraminal stenosis. L5-S1:Disc space height loss. Posterior broad-based discprotrusion/extrusion. Disc material abuts the right and left S1 nerveroots but does not definitely displace either (image 30, series 8).Bilateral facet hypertrophy. Mild spinal stenosis. Moderate bilateralforaminal stenosis, worse on the right. Impression: 1. Degenerative disc disease and facet arthrosis of the lumbar spine asdetailed above. 2. At L4-L5 protruding disc material abuts and may slightly displace theright L5 nerve root. 3. At L5-S1 protruding disc material abuts but does not definitelydisplace either S1 nerve root. Dictated by Pramod Rudolph MD @ 08/25/2023 1:15:45 PM (Electronically Signed) Sayra Gandhi DO MR * VITAMIN D 25 (DEFICIENCY) (08/11/2023 8:16 AM CDT) VITAMIN D TOTAL 56.4 20.0 - 80.0 ng/mL 08/11/2023 2:56 PM CDT [facility] Blood BLOOD SPECIMEN / Unknown Venipuncture / Unknown 08/11/2023 8:16 AM CDT 08/11/2023 8:18 AM CDT Narrative [facility] - 08/11/2023 2:56 PM CDT ? Vitamin D Status Deficiency: ? <20 ng/mL Insufficiency: ?20-29 ng/mL Sufficiency: ?30-80 ng/mL Possible Toxicity: ??>80 ng/mL Based on [employer] recommendations Biotin supplements may cause clinically significant interference for this test assay. ??If interference is suspected, it is strongly recommended that biotin is discontinued for at least one week prior to retesting. Sayra Gandhi DO SEND OUTS Performing Organization Address City/[facility]/ZIP Co de Phone Number [facility] [address] [place] [address], * FERRITIN (08/11/2023 8:16 AM CDT) FERRITIN 63.6 15.0 - 150.0 ng/mL 08/11/2023 2:56 PM CDT [facility] Blood BLOOD SPECIMEN / Unknown Venipuncture / Unknown 08/11/2023 8:16 AM CDT 08/11/2023 8:18 AM CDT Sayra Gandhi DO CHEMISTRY [facility] [address] [place] [address], * (ABNORMAL) VITAMIN B12 (08/11/2023 8:16 AM CDT) VITAMIN B12 1,486(H) 232 - 1,245 pg/mL 08/11/2023 2:56 PM CDT [facility] Blood BLOOD SPECIMEN / Unknown Venipuncture / Unknown 08/11/2023 8:16 AM CDT 08/11/2023 8:18 AM CDT Narrative [facility] - 08/11/2023 2:56 PM CDT Biotin supplements may cause clinically significant interference for this test assay. ??If interference is suspected, it is strongly recommended that biotin is discontinued for at least one week prior to retesting. Sayra Duenasraymundo Gandhi DO CHEMISTRY Performing Organization Address City/[facility]/ZIP Co de Phone Number [facility] [address] [place] [address], * ANTI HCV (05/22/2010 9:48 AM MOLD SHEET CLEANER) ANTI HCV Non-reacti ve [facility] Blood specimen (specimen) BLOOD SPECIMEN / Unknown 05/22/2010 9:48 AM MOLD SHEET CLEANER 05/22/2010 9:40 AM MOLD SHEET CLEANER Courtney Loyd WEB DESIGN INSTRUCTOR SEND OUTS Performing Organization Address [facility] Co de Phone Number [facility] INTERNAL ZIP [phone] [place] [id number] * ANTI HIV 1/2 (05/22/2010 9:48 AM MOLD SHEET CLEANER) ANTI HIV 1/2 Non-reacti ve [facility] Blood specimen (specimen) BLOOD SPECIMEN / Unknown 05/22/2010 9:48 AM MOLD SHEET CLEANER 05/22/2010 9:40 AM MOLD SHEET CLEANER Courtney Loyd WEB DESIGN INSTRUCTOR SEND OUTS Performing Organization Address [facility] Co de Phone Number [facility] INTERNAL ZIP [phone] [place] [phone] from Last 3 Months or Most Recently Relevant to Health Maintenance Advance Directives * Full Code (Latest Code Status on File) Date Activated Date Inactivated Comments 09/23/2022 10:11 AM 09/25/2022 4:37 PM Question Answer Comments Code Status Discussion: Not Discussed * Full Code Date Activated Date Inactivated Comments 11/27/2021 8:58 AM 11/27/2021 3:05 PM Bone marrow bi opsy. Question Answer Comments Code Status Discussion: Unable to Assess Preferences, Provider to review later * Full Code Date Activated Date Inactivated Comments 08/08/2018 6:57 AM 08/08/2018 12:53 PM * Full Code Date Activated Date Inactivated Comments 10/14/2017 11:26 AM 10/14/2017 5:08 PM Question Answer Comments Code Status Discussion: Discussed * Full Code Date Activated Date Inactivated Comments 12/17/2015 3:04 PM 12/17/2015 6:18 PM Care Teams Hydrotreater Operator Relationship Specialty Start Date End Date Sayra Gandhi DO [address] [place] [address] PCP - General Internal Medicine 11/20/15 Pramod Butler MD [address] [place] [phone] Consulting Physician Surgery - General 08/15/21 Jennifer Avila MD [address] [place] [address] Hematology Hematology and Oncology 11/26/21 Sushma Trivedi, WEB DESIGN INSTRUCTOR [address] [place] [address] Nurse Practitioner Hematology and Oncology - Pediatric 11/26/21 Yessica Rodriguez RN [address] [place] [phone] Heel Room Supervisor Registered Nurse 08/15/[address] [place] [address] [phone] Registered Dietitian Bunker Worker 08/15/21 Kira Cooley PA [address] [place] [address] [phone] Physician Seam Hammerer 09/23/22
--- OUTSIDE RECORDS SUMMARY | 2023-10-15 10:47 | XMS_ITS | Clinical Summary ---
Author Organization [facility] Address [address] [place] [address] Care Team Providers Care Shopper'S Aide Name Role Phone Elsewhere, Pcp Primary Care Provider Unavailabl e Source Comments Patient records contain information from all sites at [facility]. For routine questions regarding patient records, call [phone] during business hours, M-F 8:00 AM - 5:00 PM Central Time. Record requests for emergency care only can be directed to [phone] at any time.[facility] Allergies Active Allergy Reactions Criticality Noted Date Comments Meperidine Rash 08/03/2022 Hydromorphone-Guaifenesin Rash 08/03/2022 Morphine Rash 08/03/2022 Oxycodone Rash 08/03/2022 Medications Medication Sig Dispensed Refills Start Date End Date Status venlafaxine XR (EFFEXOR-XR) 150 mg 24 hr capsule Take 150 mg by mouth daily with breakfast. Active omeprazole-sodium bicarbonate (ZEGERID) 40 mg-1100 mg per capsule Take 1 capsule by mouth every morning before breakfast. Active atenoloL (TENORMIN) 25 mg tablet Take 25 mg by mouth daily. Active buPROPion (WELLBUTRIN SR) 150 mg 12 hr tablet Take 150 mg by mouth 2 (two) times a day. Active famotidine (PEPCID) 10 mg tablet Take 10 mg by mouth 2 (two) times a day. Active fluconazole (DIFLUCAN) 150 mg tablet Take 1 tablet (150 mg total) by mouth as directed. Take one tablet today and the second tablet on day 4 2 tablet 09/06/2023 Active sulfamethoxazole-tri methoprim (Bactrim DS) 800-160 mg per tablet Take 1 tablet by mouth 2 (two) times a day for 3 days. 6 tablet 10/08/2023 10/11/2023 Encounters Date Type Department Care Team Description 10/13/2023 9:30 AM CDT Virtual Visit Department of Urology in [place], [place] [address] [place] [address] Unique Che P.A.-C. Hematuria Gross (Primary Dx); Cystitis Unspecified With Hematuria; Constipation; Vaginitis Atrophic 10/12/2023 9:33 AM CDT - 10/12/2023 11:59 PM CDT Hospital Encounter Department of Radiology, [facility], in [place], [place] [address] [place] [address] Georges Ivey M.D. Hematuria Gross Discharge Disposition: Home or Self Care 09/10/2023 Orders Only Department of Obstetrics and Gynecology, Division of Urogynecology in [place], [place] [address] [place] [phone] Amy Snow R.N. Hematuria Gross (Primary Dx) 09/10/2023 Clinical Communication Department of Obstetrics and Gynecology, Division of Urogynecology in [place], [place] [address] [place] [address] Georges Ivey M.D. Communication from Last 3 Months Social History Tobacco Use Types Packs/Day Years Used Date Smoking Tobacco: Never Assessed Overall Financial Resource Strain (CARDIA) Answe r Date Recorded How hard is it for you to pa y for the very basics like food, housing, medical care, and heating? Hard 02/21/2023 Exercise Vital Sign Answer Date Recorde d On average, how many days pe r week do you engage in moderate to strenuous exercise (like a brisk walk)? Patient declined On average, how many minutes do you engage in exercise at this level? Patient declined 02/21/2023 Hunger Vital Sign Answer Date Recorded Within the past 12 months, y ou worried that your food would run out before you got the money to buy more. Sometimes true Within the past 12 months, t he food you bought just didn't last and you didn't have money to get more. Sometimes true PRAPARE - Transportation Answer Date Re corded In the past 12 months, has l ack of transportation kept you from medical appointments or from getting medications? No 01/28 In the past 12 months, has l ack of transportation kept you from meetings, work, or from getting things needed for daily living? No 02/21/2023 Nutrition Answer Date Recorded Nutrition: EVOO Fat Source Unknown 02/21 On average, how many serving s of fruits and vegetables do you eat per day (serving size is equal to 1 cup or approximately the size of a tennis ball)? 0-2 02/21/2023 Dental Answer Date Recorded Dental: Regular Dentist Yes 02/22/20 Employment Answer Date Recorded Employment status Employed and actively working without restrictions 02/21/2023 Housing Stability Answer Date Recorded What is your living situation today? I have a [facility] place to live 02/21/2023 Sex and Gender Information Value Date Recorded Sex Assigned at Female 08/03/2022 7:51 AM CDT Gender Identity Female 08/03/2022 7:51 AM CDT Sexual Orientation Not on file Plan of Treatment Health Maintenance Due Date Last Done Comments HIV Screening 1979 Hepatitis C Screening 1979 Mammogram 1979 Lipid (Cholesterol) Screening 11/15/2022 11/15/2017 Depression Screening (Annual PHQ-2) 03/29/2023 Influenza Vaccine (#1) 2023 , 01/23/2022, 01/23/2021, Additional history exists DTaP,Tdap,and Td Vaccines (3 - Td or Tdap) 09/03/2028 09/03/2018, 05/22/2010 Hepatitis B Vaccines Completed 04/23/2015, 11/22/2014, 04/25/1997 COVID-19 Vaccine Completed 01/26/2023, , 12/23/2021, Additional history exists HPV Vaccines Aged Out No longer eligi ble based on patient's age to complete this topic Pneumococcal vaccine (0-64 years) Aged Out No longer eligible based on patient's age to complete this topic Procedures Procedure Name Priority Date/Time Associated Diagnosis Comments CT UROGRAM WITHOUT AND WITH IV CONTRAST RAD - Routine (most inpatients and all outpatients) 10/12/2023 11:31 AM CDT Hematuria Gross CREATININE WITH EGFR, S/P Routine 10/12/2023 9:13 AM CDT Hematuria Gross EXTI LIPID PANEL W REFLEX MEASURED LDL Routine 11/15/2017 9:05 AM CDT from Last 3 Months or Most Recently Relevant to Health Maintenance Results * CT Urogram without and with IV Contrast (10/12/2023 11:31 AM CDT) Anatomical Region Laterality Modality Abdomen, Pelvis, Abdominal R ST LOS, Abdominal ARZ LOS, Abdominal FLA LOS N/A Computed Tomograp hy, Computed Tomography 10/12/2023 11:1 4 AM CDT Impressions 10/12/2023 11:41 AM CDT No CTU evidence of urothelial carcinoma. Narrative 10/12/2023 11:41 AM CDT EXAM: ??CT UROGRAM WITHOUT AND WITH IV CONTRAST COMPARISON: ??None available FINDINGS: ?? : No urinary calculi. Symmetric nephrograms. No solid renal mass. Despite attempts at delayed, prone imaging, the distal left ureter is not well-opacified. Collecting systems and ureters are otherwise normal in course and caliber without masses or filling defects. Bladder is unremarkable. Physiologic appearance the ovaries. Hysterectomy. Other findings: Post cystectomy. Hepatic cyst or hemangioma. Pancreas, spleen and adrenals are unremarkable. No abdominal or pelvic lymphadenopathy. Kennedy-en-Y gastric bypass. Procedure Note Fidel Sánchez M.D. - 10/12/2023 EXAM: CT UROGRAM WITHOUT AND WITH IV CONTRAST COMPARISON: None available FINDINGS: : No urinary calculi. Symmetric nephrograms. No solid renal mass.Despite attempts at delayed, prone imaging, the distal left ureter is notwell-opacified. Collecting systems and ureters are otherwise normal incourse and caliber without masses or filling defects. Bladder is unremarkable. Physiologic appearance theovaries. Hysterectomy. Other findings: Post cystectomy. Hepatic cyst or hemangioma. Pancreas,spleen and adrenals are unremarkable. No abdominal or pelviclymphadenopathy. Kennedy-en-Y gastric bypass. IMPRESSION: No CTU evidence of urothelial carcinoma. Georges Ivey M.D. IMG CT PROCEDURES * Creatinine with Estimated GFR (10/12/2023 9:13 AM CDT) Creatinine 0.71 0.59 - 1.04 mg/dL 10/12/2023 10:19 AM CDT DTL Estimated GFR (eGFR) >90 >=60 mL/min/BSA 10/12/2023 10:19 AM CDT DTL Comment: Estimated GFR calculated using the 2020 CKD_EPI creatinine equation. Blood (Blood, Venous) 10/12/2023 9:13 AM CDT 10/12/2023 9:47 AM CDT Georges Ivey M.D. LAB BLOOD ADD-ON [facility] [address] [place] [address], [place] [facility] [address] [place] [address] from Last 3 Months or Most Recently Relevant to Health Maintenance Care Teams Shopper'S Aide Relationship Specialty Start Date End Date Elsewhere, Pcp PCP - General Family Medicine 02/10/20
--- OUTSIDE RECORDS SUMMARY | 2023-10-15 10:48 | XMS_ITS | Encounter Summary ---
Author Organization [facility] Address [address] [place] [id number] Care Team Providers Care Field Pipe Lines Supervisor Name Role Phone Elsewhere, Pcp Primary Care Provider Unavailabl e Reason for Referral * MRI/CAT/PET Scan (Routine) - Closed Specialty Diagnoses / Procedures Referred By Contac t Referred To Contact Radiology Diagnoses Hematuria Gross Procedures CT Urogram without and with IV Contrast Georges Ivey M.D. [address] [place] [phone] [facility] Referral ID Status Reason Start Date Expiration Date Visits Re quested Visits Authorized [id number] Closed 08/25/2023 08/24/2024 1 1 Reason for Visit * MRI/CAT/PET Scan (Routine) - Closed Specialty Diagnoses / Procedures Referred By Contac t Referred To Contact Radiology Diagnoses Hematuria Gross Procedures CT Urogram without and with IV Contrast Georges Ivey M.D. [address] [place] [phone] [facility] Referral ID Status Reason Start Date Expiration Date Visits Re quested Visits Authorized [id number] Closed 08/25/2023 08/24/2024 1 1 Encounter Details Date Type Department Care Team (Latest Contact Info) Description 10/12/2023 9:33 AM CDT - 10/12/2023 11:59 PM CDT Hospital Encounter Department of Radiology, [facility], in [place], [place] [address] [place] [address] [address]es [address]vey M.D. [address] [place] [address] Hematuria Gross Discharge Disposition: Home or Self Care Social History Tobacco Use Types Packs/Day Years [...] your living situation today? I have a [facility] place to live 02/21/2023 Sex and Gender Information Value Date Recorded Sex Assigned at Female 08/03/2022 7:51 AM CDT Gender Identity Female 08/03/2022 7:51 AM CDT Sexual Orientation Not on file documented as of this encounter Medications at Time of Discharge Medication Sig Dispensed Refills Start Date End Date atenoloL (TENORMIN) 25 mg tablet Take 25 mg by mouth daily. buPROPion (WELLBUTRIN SR) 150 mg 12 hr tablet Take 150 mg by mouth 2 (two) times a day. famotidine (PEPCID) 10 mg tablet Take 10 mg by mouth 2 (two) times a day. fluconazole (DIFLUCAN) 150 mg tablet Take 1 tablet (150 mg total) by mouth as directed. Take one tablet today and the second tablet on day 4 2 tablet 09/06/2023 omeprazole-sodium bicarbonate (ZEGERID) 40 mg-1100 mg per capsule Take 1 capsule by mouth every morning before breakfast. venlafaxine XR (EFFEXOR-XR) 150 mg 24 hr capsule Take 150 mg by mouth daily with breakfast. documented as of this encounter Plan of Treatment Not on file documented as of this encounter Procedures Procedure Name Priority Date/Time Associated Diagnosis Comments CT UROGRAM WITHOUT AND WITH IV CONTRAST RAD - Routine (most inpatients and all outpatients) 10/12/2023 11:31 AM CDT Hematuria Gross documented in this encounter Results * CT Urogram without and with [...] evidence of urothelial carcinoma. Georges Ivey M.D. IMTammie CT PROCEDURES documented in this encounter Visit Diagnoses Diagnosis Hematuria Gross documented in this encounter Administered Medications Inactive Administered Medications - up to 3 most recent administrations Medication Order MAR Action Action Date Dose Rate Site iohexoL 300 mg iodine/mL solution 1-200 mL (Omnipaque) 1-200 mL, intravenous, Once in imaging, contrast, Starting on 10/12/23 at 1021, For 1 dose, Imaging Protocol Orders, Dose per Radiant Medication Guidelines Given 10/12/2023 10:54 AM CDT 140 mL sodium chloride 0.9 % flush 1-250 mL 1-250 mL, intravenous, Once, On 10/12/23 at 1045, For 1 dose, Imaging Protocol Orders, Dose per Radiant Medication Guidelines Given 10/12/2023 10:54 AM CDT 190 mL documented in this encounter Care Teams Field Pipe Lines Supervisor Relationship Specialty Start Date End Date Elsewhere, Pcp PCP - General Family Medicine 02/10/20 documented as of this encounter
--- OUTSIDE RECORDS SUMMARY | 2023-10-15 10:48 | XMS_ITS | Encounter Summary ---
Author Organization [facility] Address [address] [place] [phone] Care Team Providers Care Landscape Drafter Name Role Phone Elsewhere, Pcp Primary Care Provider Unavailabl e Reason for Visit * Reason Onset Date Comments Communication 09/10/2023 Encounter Details Date Type Department Care Team (Latest Contact Info) Description 09/10/2023 Clinical Communication Department of Obstetrics and Gynecology, Division of Urogynecology in [place], [place] [address] [place] [phone] Georges Ivey M.D. [address] [place] [phone] Communication Social History Tobacco Use Types Packs/Day Years [...] your living situation today? I have a [facility] place to live 02/21/2023 Sex and Gender Information Value Date Recorded Sex Assigned at Female 08/03/2022 7:51 AM CDT Gender Identity Female 08/03/2022 7:51 AM CDT Sexual Orientation Not on file documented as of this encounter Plan of Treatment Not on file documented as of this encounter Visit Diagnoses Not on filedocumented in this encounter Care Teams Landscape Drafter Relationship Specialty Start Date End Date Elsewhere, Pcp PCP - General Family Medicine 02/10/20 documented as of this encounter
--- OUTSIDE RECORDS SUMMARY | 2023-10-15 10:48 | XMS_ITS | Encounter Summary ---
Author Organization [facility] Address [address] [place] [address] Care Team Providers Care Archeology Professor Name Role Phone Elsewhere, Pcp Primary Care Provider Unavailabl e Reason for Visit * Outpatient (Routine) - Closed Specialty Diagnoses / Procedures Referred By Kimberly t Referred To Contact Urology Diagnoses Hematuria Georges Head M.D. [address] [place] [phone] [facility] Referral ID Status Reason Start Date Expiration Date Visits Re quested Visits Authorized [id number] Closed 08/25/2023 02/23/2025 1 1 Encounter Details Date Type Department Care Team (Late st Contact Info) Description 10/13/2023 9:30 AM CDT Virtual Visit Department of Urology in [place], [place] [address] [place] [phone] Unique Che, PMagnoAMagno-CMagno [address] [place] [phone] Hematuria Gross (Primary Dx); Cystitis Unspecified With Hematuria; Constipation; Vaginitis Atrophic Social History Tobacco Use Types Packs/Day Years [...] your living situation today? I have a [facility] place to live 02/21/2023 Sex and Gender Information Value Date Recorded Sex Assigned at Female 08/03/2022 7:51 AM CDT Gender Identity Female 08/03/2022 7:51 AM CDT Sexual Orientation Not on file documented as of this encounter H&P Notes * Unique Che, PMagnoA.Nakul. - 10/13/2023 9:30 AM CDT SUBJECTIVE REASON FOR CONSULT Gross hematuria; new consultation Patient seen on my personal calendar via phone consult. HISTORY OF PRESENT ILLNESS This is a 42-year-old female here today to discuss hematuria. She was known to our department, previously seen by Janis Payton NP and current patient of Dr. Ivey in Urogynecology. She last saw Dr. Ivey in April of 2023. Noted history TOT sling placed in 2008, vaginal hysterectomy with repairs in 2009, and periurethral bulking in 2010. She has now developed symptoms associated with OAB.They have pursued behavioral strategies for OAB at this point only. No pharmacotherapy, PFPT at this time. Patient presented to the ED 09/23/2023 with dysuria and gross hematuria. She was initiated on Keflexand Pyridium. I do not appreciate that a culture was definitely collected, however urinalysis is consistent with true infection. She additionally has had a presentation 08/19/2023 to the ED for dysuria, frequency, gross hematuria. She was initiated on Keflex. Urinalysis consistent with infection. She previously in her life has not had notable issue with UTI or hematuria. Does not believe she has had hematuria outside of urinary infection. She is s/p hysterectomy, post-menopausal. Reports fluid intake of approximately 64 oz Crystal Light per day, occasional iced tea or soda. Some of her fluid intake is limited by her bypass surgery. She does endorse constipation with bowel movements every couple of days, currently using MiraLax. Constipation has been a long-term issue, but perhaps is worsened after her surgery. She believes she does intake a decent amount of fiber in her diet. Of note, pelvic examination performed by Dr. Ivey did note atrophic vaginitis. Does not note meshextrusion or pelvic organ prolapse. No note of other atypical findings. Patient recently had a urine cytology which is currently pending. A cystoscopy was completed by Dr. Ivey in April of 2023 and this by report is negative, no pictures are available for my personal review. A CT urogram was completed 10/12/2023 which demonstrates no evidence for urothelial carcinoma, no urinary calculi, no renal masses, no findings related to bladder such as filling defects. Urinary tract anatomy appears normal. Lower Urinary Symptoms Lower Urinary Sx: able to sense full bladder (+) 7 x per day 1 x nightly difficulty urinating (+) Obstructive Sx: weak stream (+) kidney infections or required hospitalization for kidney failure (-) # of UTI's in past year: 3 or more Required catheter: no Incontinence: dribbling (+) unintentionally leaks urine (+) leaking occurs during coughing, sneezing or lifting heavy objects (-) experiences a feeling of urgency before leaking (+) Treatments: Treatments taken for urinary symptoms: none had surgical or office procedures to improve urinary symptoms (+) The following portions of the patient's history were reviewed and updated as appropriate: allergies, current medications, family history, medical history, social history, surgical history, and problem list. REVIEW OF SYSTEMS Genitourinary: Positive for difficulty urinating. OBJECTIVE There were no vitals filed for this visit. PHYSICAL EXAM No physical examination via phone visit. LABORATORY Lab Results Component Value Date CREATININE 0.71 10/12/2023 Urine cytology pending IMAGING CT Urogram without and with IV Contrast Narrative: EXAM: CT UROGRAM WITHOUT AND WITH IV CONTRAST COMPARISON: None available FINDINGS: : No urinary calculi. Symmetric nephrograms. No solid renal mass. Despite attempts at delayed, prone imaging, the distal left ureter is not well- opacified. Collecting systems and ureters are otherwise normal in course and caliber without masses or filling defects. Bladder is unremarkable. Physiologic appearance the ovaries. Hysterectomy. Other findings: Post cystectomy. Hepatic cyst or hemangioma. Pancreas, spleen and adrenals are unremarkable. No abdominal or pelvic lymphadenopathy. Kennedy-en-Y gastric bypass. Impression: No CTU evidence of urothelial carcinoma. UROGYN Cystoscopy Performed by: Georges Ivey M.D. Authorized by: Georges Ivey M.D. Care team members present 1. Thelma Doll PROCEDURE DETAILS A cystoscope was introduced and the urethra examined: yes Urethra: normal Trigone: normal Right ureter: normal function Right ureter comment: Single, orthotopic. Left ureter: normal function Left ureter comment: Single, orthotopic. Bladder: normal Bladder comment: No bladder mucosal abnormalities, foreign body, debris, stone. Bladder biopsy performed: no Cystoscope was removed at the end of the procedure: yes ASSESSMENT / PLAN #1 Gross hematuria, negative evaluation/urine cytology pending #2 Recurrent urinary tract infections #3 Constipation #4 Atrophic vaginitis (noted on prior pelvic exam) It was my pleasure to speak with Mrs. Lisa Hall. We spoke via telephone today. She was referredfor hematuria evaluation and has had a negative CT urogram and negative cystoscopy. I do not have photos from cystoscopy, however this was performed by Dr. Ivey and noted to be negative. No abnormal urinary tract anatomy, urinary stones, hydronephrosis, renal mass, urinary tract filling defect noted on CT. She does have a urine cytology which is currently pending. I explained to her this may return negative or perhaps atypical given her recent infections. I will contact her directly if this returns suspicious or positive. Her larger concern today was recurrent UTI. We discussed basic management of recurrent UTIs which would include increased fluid intake, management of chronic constipation, treatment of atrophic vaginitis if present, and consideration of additional therapy such as [id number] cranberry supplementation. Given she has had 2 isolated UTIs, I would likely hold off on recommending Hiprex and vitamin-C, D mannose, suppressive therapy, etc. We discussed obtaining an [id number] cranberry supplement, message in her Urogynecology team to obtain prescription for topical estrogen if appropriate, and message in her primary care providerto see how her constipation can be improved further. She is doing a relatively good job with fluid intake, and she should continue to intake what she can tolerate. There is no current concern for STD, so we will not pursue testing for this. No concern regarding new sexual partners which can be associated with honeymoon cystitis. She should continue to cleanse with water and avoid fragrant or astringent soaps/washes in the vaginal region. I discussed that if she experiences further urinary tract infections within this year, we can certainly consider referral to Infectious Disease to discuss more in-depth therapies. Neither she nor I feel that this is necessary at this time. She was in agreement with this plan and we will not establish for any particular follow-up at this point. I will contact her regarding her urine cytology. She should contact me if she experiences gross hematuria outside of the context of an infection. All questions were answered today to the best of my ability, she was very appreciative of the conversation. Plan: 1) Patient to discuss topical estrogen with Urogynecology provider 2) Patient to discuss constipation management strategies with PCP, continue MiraLAX and increased fluids 3) Start OTC cranberry supplement daily, can continue as needed 4) Consideration to ID referral if further recurrent UTIs 5) Urine cytology pending, will message patient with this result Signed by: Unique Che P.A.-C. 10/12/2023 1:32 PM CDT Total patient care time spent: 39 minutes Answers submitted by the patient for this visit: Urinary Symptoms (Submitted on 10/11/2023) Sensation that your bladder is not completely emptying after urinating: Yes documented in this encounter Plan of Treatment Not on file documented as of this encounter Visit Diagnoses Diagnosis Hematuria Gross- Primary Cystitis Unspecified With Hematuria Constipation Vaginitis Atrophic documented in this encounter Care Teams Archeology Professor Relationship Specialty Start Date End Date Elsewhere, Pcp PCP - General Family Medicine 02/10/20 documented as of this encounter
--- OUTSIDE RECORDS SUMMARY | 2023-10-15 10:48 | XMS_ITS | Encounter Summary ---
Author Organization [facility] Address [address] [place] [id number] Care Team Providers Care Fruit Express Agent Name Role Phone Elsewhere, Pcp Primary Care Provider Unavailabl e Encounter Details Date Type Department Care Team (Late st Contact Info) Description 09/10/2023 Orders Only Department of Obstetrics and Gynecology, Division of Urogynecology in [place], [place] [address] [place] [phone] Amy Snow, R.N. [address] [place] [phone] Hematuria Gross (Primary Dx) Social History Tobacco Use Types Packs/Day Years [...] your living situation today? I have a [facility] place to live 02/21/2023 Sex and Gender Information Value Date Recorded Sex Assigned at Female 08/03/2022 7:51 AM CDT Gender Identity Female 08/03/2022 7:51 AM CDT Sexual Orientation Not on file documented as of this encounter Plan of Treatment Pending Results Name Type Priority Associated Diagnoses Date /Time Cytology Non-COMMERCIAL BAKING TEACHER (Scheduled) Pathology and Cytology Routine Hematuria Gross 10/12/2023 9:16 AM CDT Scheduled Orders Name Type Priority Associated Diagnoses Orde r Schedule Cytology Non-COMMERCIAL BAKING TEACHER (Scheduled) Pathology and Cytology Routine Hematuria Gross Expected: 09/10/2023, Expires: 12/10/2024 documented as of this encounter Results * Creatinine with Estimated GFR (10/12/2023 9:13 AM CDT) Creatinine 0.71 0.59 - 1.04 mg/dL 10/12/2023 10:19 AM CDT DTL Estimated GFR (eGFR) >90 >=60 mL/min/BSA 10/12/2023 10:19 AM CDT DTL Comment: Estimated GFR calculated using the 2020 CKD_EPI creatinine equation. Blood (Blood, Venous) 10/12/2023 9:13 AM CDT 10/12/2023 9:47 AM CDT Georges Ivey M.D. LAB BLOOD ADD-ON [facility] 200 [place] [address], [facility] DTL [facility] [address] [place] [address] documented in this encounter Visit Diagnoses Diagnosis Hematuria Gross- Primary documented in this encounter Care Teams Fruit Express Agent Relationship Specialty Start Date End Date Elsewhere, Pcp PCP - General Family Medicine 02/10/20 documented as of this encounter
--- OUTSIDE RECORDS SUMMARY | 2023-10-15 10:48 | XMS_ITS ---
Author Organization [facility] Address [address] [place] [address] Care Team Providers Care Marine Fireman Name Role Phone Unavailable Unavailable Unavailable Surgery Details Not on file Complications Check Surgery Details section. Procedure Estimated Blood Loss Check Surgery Details section. Procedure Findings Check Surgery Details section. Procedure Specimens Taken Check Surgery Details section.
--- OUTSIDE RECORDS SUMMARY | 2023-10-15 10:48 | XMS_ITS | Referral Summary ---
Author Organization [facility] Address [address] [place] [id number] Care Team Providers Care Soils Analyst Name Role Phone Elsewhere, Pcp Primary Care Provider Unavailabl e Source Comments Patient records contain information from all sites at [facility]. For routine questions regarding patient records, call [phone] during business hours, M-F 8:00 AM - 5:00 PM Central Time. Record requests for emergency care only can be directed to [phone] at any time.[facility] Encounters Date Type Department Care Team Description 10/13/2023 9:30 AM CDT Virtual Visit Department of Urology in [place], [place] [address] [place] [phone] Unique Che, [email or web address]. Hematuria Gross (Primary Dx); Cystitis Unspecified With Hematuria; Constipation; Vaginitis Atrophic 10/12/2023 9:33 AM CDT - 10/12/2023 11:59 PM CDT Hospital Encounter Department of Radiology, [facility], in [place], [place] [address] [place] [phone] Georges Ivey M.D. Hematuria Gross Discharge Disposition: Home or Self Care 09/10/2023 Orders Only Department of Obstetrics and Gynecology, Division of Urogynecology in [place], [place] [address] [place] [phone] Amy Snow R.N. Hematuria Gross (Primary Dx) 09/10/2023 Clinical Communication Department of Obstetrics and Gynecology, Division of Urogynecology in [place], [place] [address] [place] [phone] Georges Ivey M.D. Communication from Last 3 Months Allergies Active Allergy Reactions Criticality Noted Date [...] for 3 days. 6 tablet 10/08/2023 10/11/2023 Social History Tobacco Use Types Packs/Day Years [...] your living situation today? I have a [facility] place to live 02/21/2023 Sex and Gender Information Value Date Recorded Sex Assigned at Female 08/03/2022 7:51 AM CDT Gender Identity Female 08/03/2022 7:51 AM CDT Sexual Orientation Not on file Plan of Treatment Not on file Procedures Procedure Name Priority Date/Time Associated Diagnosis [...] CDT Georges Ivey M.D. LAB BLOOD ADD-ON [facility] [address] [place] [address], [place] DTL [facility] [address] [place] [address] from Last 3 Months or Most Recently Relevant to Health Maintenance Care Teams Soils Analyst Relationship Specialty Start Date End Date Elsewhere, Pcp PCP - General Family Medicine 02/10/20
== END 2023-10-15 10:41 | disposition home or self-care (01) ==
LOC: INJ CL 10:46
PROVIDERS: PCP Internal Medicine; Visit Provider Family Medicine
DX: M54.16 Radiculopathy, lumbar region (principal); M51.26 Other intervertebral disc displacement, lumbar region
CPT/HCPCS: 62323; J0702; Q9966

== ENCOUNTER 2024-03-14 10:08 | Outpatient (CLI) | payer BC, SELFPAY | END 2024-03-14 10:09 | disposition home or self-care (01) | LOC: INJ CL 10:09 | PROVIDERS: PCP Internal Medicine; Visit Provider Family Medicine | DX: M54.16 Radiculopathy, lumbar region (principal); M51.369 Other intervertebral disc degeneration, lumbar region without mention of lumbar back pain or lower extremity pain | CPT/HCPCS: 62323; J0702; Q9966 ==

== ENCOUNTER 2024-05-30 08:32 | Outpatient (CLI) | payer OTHER, BC, SELFPAY | END 2024-05-30 08:33 | disposition home or self-care (01) | LOC: INJ CL 08:33 | PROVIDERS: PCP Internal Medicine; Visit Provider Family Medicine | DX: M54.16 Radiculopathy, lumbar region (principal); M51.369 Other intervertebral disc degeneration, lumbar region without mention of lumbar back pain or lower extremity pain | CPT/HCPCS: 62323; J0702; Q9966 ==

== ENCOUNTER 2024-09-15 13:29 | Outpatient (CLI) | payer OTHER, SELFPAY ==
--- OUTSIDE RECORDS SUMMARY | 2012-04-15 09:30 | XMS_ITS | Continuity of Care Document ---
Author Organization [facility] Address [address] [address] [place] [address] Phone Care Team Providers Care Pattern Chart Writer Name Role Phone Eliza Royal MD Unavailable Unavailable Allergies, Adverse Reactions, Alerts Substance Reaction Status Criticality morphine Rash Active No Information meperidine Rash Active No Information HYDROMORPHONE HCL Itching Active No Informa tion codeine Hives Active No Information Medications Medication Instructions Dosage Effective Dates (start - stop) Status Comments atenolol 50 mg tablet take 1 tablet (50MG) by oral route every day 50 MG - Active clonazepam 0.5 mg tablet take 1 Tablet (0.5MG) by oral route every day as needed 0.5 MG - Active ranitidine 150 mg tablet take 1 - 2 Tablet (150MG) by oral route 2 times every day - Active Carafate 100 mg/mL Oral Susp take 10 milliliter (1G) by oral route 4 times every day on an empty stomach 1 hour before meals and at bedtime 1 G - Active Ultram 50 mg tablet take 4 Tablet (200MG ) by oral route every day as needed 200 MG - Active Valtrex 1 g tablet take 2 Tablet (2000M G) by oral route every 12 hours prn cold sores 2000 MG - Active Effexor XR 150 mg capsule,extended release take 1 capsule (150MG) by oral route 2 times every day 150 MG - Active Reglan 5 mg tablet take 1 tablet (5MG) by oral route as needed up to 4 times every day 30 minutes before meals and at bedtime 5 MG - Active nausea Procedures Procedure Date Ugi Endo; W/bx 1/mx Level Iv-surg Path Gross/micro 13 Offic/outpt E&m Estab Low-mod 3 Offic Cons New/estab Mod Advance Directives Directive Yes / No Effective Date File Name Resuscitation Not Answered N/A N/A Life Support Not Answered N/A N/A Intubation Not Answered N/A N/A Antibiotics Not Answered N/A N/A IV Fluid Support Not Answered N/A N/A Tube Feed Not Answered N/A N/A Other Directive N/A N/A WARNING:The information contained in this section is historical and is provided for information only and does not constitute a legal document or any assurance that the information is still accurate. Please verify the information with the moore of the legal document before using it for clinical purposes. Encounters Encounter Description Practice Location Reason(s) For Visit Diagnoses Date Provider Providers Copied on Encounter [facility], [address] [address], [place], [place], [id number], [place] tel:[phone] [facility] HeartburnDysp hagia, UnspecifiedHe artburnDyspha ophelia, UnspecifiedCh est Pain Nos 3 Genny Kay. [address] [place] [address], [id number], [place]. tel:[phone] Referring Provider: Jany Crow MD, [address] [place] [address], [address]. tel:[phone] Offic/outpt E&m Estab Low-mod [facility], [address] [address], [place], [id number], [place] tel:[phone] [facility] Reflux/bur hung (chief complaint) Gastroesophag eal RefluxNausea AloneChest Pain Nos 3 Genny Kay. [address] [place] [address], [id number], [place]. tel:[phone] Referring Provider: Jany Crow MD, [address] [place] [address], [address]. tel:[phone] Offic Cons New/estab Mod [facility], [address] [address], [place], [id number], tel:[phone] [facility] No Information 0201 2 No Information Referring Provider: Cipriano Mae MD, [address], [place], [address]. tel:[phone] Family History Family Member Type Diagnosis Age At Onset First degree family history Problem (finding) No history of Crohn's First degree family history Problem (finding) Cancer - First degree family history Problem (finding) Cholelithasis First degree family history Problem (finding) No history of Cancer, colon First degree family history Problem (finding) No Family history of No history of Colon Polyps First degree family history Problem (finding) GERD First degree family history Problem (finding) No history of Ulcerative Colitis First degree family history Problem (finding) Irritable bowel disease Payers Payer name Insurance type Covered republican ID Authorchapo sr(s) [employer] [facility] [id number] [place] Medical Assistance CI [id number] Social History Type Description Quantity Date Captured Comments Alcohol Use Details Unknown Caffeine Use Details Unknown Tobacco Use Status Smoking Status No Information Sex Female Chief Complaint And Reason For Visit No Information Reason For Referral Reason For Referral No Information History Of Present Illness Encounter Date Complaint History Of Prese nt Illness No Information Functional Status Date Functional Assessmen t No Information Instructions Date Instruction Additional Infor mation No Information Assessments Type Assessment Date No Information Patient Care Teams Name Effective Dates (start - stop) Status Members No Information
--- OUTSIDE RECORDS SUMMARY | 2012-04-15 09:30 | XMS_ITS | Continuity of Care Document ---
Author Organization [facility] Address [address] [address] [place] [address] Phone Care Team Providers Care Therapy Director Name Role Phone Eliza Royal MD Unavailable [...] Diagnoses Date Provider Providers Copied on Encounter [facility], [address] [address], [place], [place], [id number], [place] tel:[phone] [facility] HeartburnDysp hagia, UnspecifiedHe artburnDyspha ophelia, UnspecifiedCh est Pain Nos 3 Genny Kay. [address] [place] [address], [id number], [place]. tel:[phone] Referring Provider: Jany Crow MD, [address] [place] [address], [address]. tel:[phone] Offic/outpt E&m Estab Low-mod [facility], [address] [address], [place], [id number], [place] tel:[phone] [facility] Reflux/bur hung (chief complaint) Gastroesophag eal RefluxNausea AloneChest Pain Nos 3 Genny Kay. [address] [place] [address], [id number], [place]. tel:[phone] Referring Provider: Jany Crow MD, [address] [place] [address], [address]. tel:[phone] Offic Cons New/estab Mod [facility], [address] [address], [place], [id number], tel:[phone] [facility] No Information 0201 2 No Information Referring Provider: Cipriano Mae MD, [address], [place], [address]. tel:[phone] Family History Family Member Type Diagnosis Age [...] disease Payers Payer name Insurance type Covered green party ID Authorchapo sr(s) [employer] [facility] [id number] [place] Medical Assistance CI [id number] Social History Type Description Quantity Date Captured [...]
--- OUTSIDE RECORDS SUMMARY | 2024-09-15 13:58 | XMS_ITS | Clinical Summary ---
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 Name Role Phone Hiram Sayra Camacho DO Primary Care Provider Pramod Butler MD Unavailable Jennifer Avila MD Unavailable [phone] Sushma Trivedi SHARE DAIRY FARMER Unavailable Yessica Rodriguez RN Unavailable [phone] Unavailable [phone] Kira Cooley Unavailable [phone] Allergies Active Allergy Reactions Criticality Noted Date Comments Kelly Amaral High 05/21/2009 Hydromorphone Itching Medium 05/31/2006 Per patient, happened when she was getting significant doses on a APPLICATION SUPPORT TECHNICIAN pump Hydromorphone-Guaifenes in Rash 08/03/2022 Meperidine Rash,Itching Low 05/21/2009 Morphine Rash,Itching Low 05/21/2009 When on APPLICATION SUPPORT TECHNICIAN with 'high doses' per patient Nsaids (Non-Steroidal [...] // Jerri Adam RN, Bariatric Nurse Clinician, [facility] 09/28/2022. 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 0 09/24/19 23 Active ondansetron (ZOFRAN ODT) 4 mg disintegrating tabletIndications :Depression with anxiety Place 1 Tablet (4 mg) on the tongue every 8 hours if needed for Nausea/Vomiting. 30 Tablet 1 3 12:22 PM CDT 09/26/19 23 Active nystatin (MYCOSTATIN) topical creamIndications: Intertriginous candidiasis,S/P gastric bypass Apply topically to affected area(s) two times daily. 30 g 02/05/20 23 Active nystatin powder (MYCOSTATIN) powderIndications :Intertriginous candidiasis,S/P gastric bypass Apply 1 Strip topically to affected area(s) 4 times daily if needed (rash). 60 g 3 02/05/20 23 Active cholecalciferol, Vitamin D3, (Vitamin D-3) 2,000 unit tablet Take 2,000 units by mouth once daily. Active polyethylene glycoL (Miralax) 17 gram/scoop powderIndications :S/P gastric bypass Measure 17g in the cap provided and dissolve completely in 8 ounces of liquid as directed and drink once a day. Recommend using MiraLax in the first water bottle of the day. If no results, then increase to 2-3 doses per day until a bowel movement 714 g 3 07/27/19 24 Active buPROPion (WELLBUTRIN XL) 300 mg Extended-Release tabletIndications :Depression with anxiety Take 1 Tablet (300 mg) by mouth once daily. 90 Tablet 3 08/11/19 24 Active venlafaxine (EFFEXOR XR) 150 mg Extended-Release capsuleIndication s:Adjustment disorder with mixed anxiety and depressed mood Take 1 Capsule (150 mg) by mouth once daily with evening meal. 90 Capsule 3 08/11/19 24 Active acetaminophen SR (TYLENOL ARTHRITIS) 650 mg Extended-Release tabletIndications :Arthralgia, unspecified joint,Myalgia TAKE 2 TABLETS (1,300 MG) BY MOUTH EVERY 8 HOURS. MAX ACETAMINOPHEN DOSE: 4000MG IN 24 HRS. 540 Tablet 3 10/26/19 24 Active estradioL (ESTRACE) 0.01% (0.1 mg/g) vaginal cream Insert 1 g into the vagina. 10/18/19 24 Active venlafaxine (EFFEXOR XR) 75 mg cp24 Extended-Release capsuleIndication s:Severe episode of recurrent major depressive disorder, without psychotic features (HC),Anxiety Take 1 Capsule (75 mg) by mouth once daily with a meal. Take in addition to the 150 mg dose for total daily dose of 225 mg. 90 Capsule 3 01/28/20 24 Active vibegron (GEMTESA) 75 mg tabletIndications :OAB (overactive bladder) Take 1 Tablet (75 mg) by mouth once daily. 90 Tablet 1 01/28/20 24 Active valACYclovir (VALTREX) 1 gram tabletIndications :Herpes labialis Take 2 Tablets (2 g) by mouth two times daily. 4 Tablet 11 04/12/19 25 Active tiZANidine (ZANAFLEX) 4 mg tabletIndications :Neck sprain, subsequent encounter TAKE 1 TABLET (4 MG) BY MOUTH EVERY 6 HOURS IF NEEDED FOR MUSCLE SPASM. 60 Tablet 3 06/03/19 25 Active diclofenac topical 1 % gelIndications:Ac bill moore's slough right-sided low back pain with right-sided sciatica APPLY 4 GM TOPICALLY TO AFFECTED AREA(S) 4 TIMES DAILY IF NEEDED (BACK PAIN). 200 g 3 07/21/19 25 Active omeprazole 40 mg Delayed-Release capsuleIndication s:S/P gastric bypass TAKE ONE CAPSULE (40 MG) BY MOUTH ONCE DAILY BEFORE A MEAL. 90 Capsule 2 07/26/19 25 Active busPIRone 30 mg tabletIndications :Depression with anxiety Take 1 Tablet (30 mg) by mouth two times daily. 180 Tablet 3 08/08/19 25 Active LORazepam 1 mg tabletIndications :Anxiety due to invasive procedure TAKE 1 TABLET (1 MG) BY MOUTH ONE TIME IF NEEDED FOR ANXIETY FOR UP TO 1 DOSE. 1 Tablet 08/09/19 25 Active oxyCODONE-acetami nophen 5-325 mg per tabletIndications :Neck sprain, subsequent encounter Take 1 Tablet by mouth every 6 hours if needed for Pain. Max acetaminophen dose: 4000mg in 24 hrs. 60 Tablet 5 1:06 PM CDT 08/18/19 25 Active gabapentin 600 mg tabletIndications :Lumbar radiculopathy Take 1 Tablet (600 mg) by mouth three times daily. 90 Tablet 5 5 12:03 PM CDT 09/01/19 25 Active HYDROcodone-aceta minophen (10-325 mg/tablet)Indicat ions:Lumbar radiculopathy,Lum bar disc herniation Take 1 Tablet by mouth 3 times daily if needed for Pain (chronic). Max acetaminophen 4000mg in 24 hours. 60 Tablet 5 10:04 AM CDT 09/01/19 25 Active hydrOXYzine HCL 50 mg tabletIndications :Adjustment disorder with mixed anxiety and depressed mood Take 1 Tablet (50 mg) by mouth every 6 hours if needed (Anxiety). 90 Tablet 3 09/14/19 25 Active gabapentin (NEURONTIN) 600 mg tabletIndications :Lumbar radiculopathy Take 1 Tablet (600 mg) by mouth three times daily. 90 Tablet 5 10/25/19 24 025 Discontin ued(Reord er (E-cancel not sent)) hydrOXYzine HCL 50 mg tabletIndications :Adjustment disorder with mixed anxiety and depressed mood Take 1 Tablet (50 mg) by mouth every 6 hours if needed for Anxiety. 90 Tablet 1 5 10:21 AM CDT 06/27/19 25 025 Discontin ued(Reord er (E-cancel not sent)) oxyCODONE-acetami nophen 5-325 mg per tabletIndications :Neck sprain, subsequent encounter Take 1 Tablet by mouth every 6 hours if needed for Pain. Max acetaminophen dose: 4000mg in 24 hrs. 36 Tablet 5 4:24 PM CDT 08/09/19 25 025 Discontin ued(Reord er (E-cancel not sent)) hydrOXYzine HCL 50 mg tabletIndications :Adjustment disorder with mixed anxiety and depressed mood Take 1 Tablet (50 mg) by mouth every 6 hours if needed (Anxiety). 90 Tablet 09/13/19 25 025 Discontin ued(Reord er (E-cancel not sent)) Active Problems Patient Care Coordination No te [...] 2.01) , Body mass index is 46.99 kg/m . Planned Operation Samaria-en-Y Gastric Bypass Payor: MEDICAID [place] / Plan: MEDICAID / Product Type: *No Product type* / Insurance requirements:Pre-surgery medical clearance Est. Pgm Completion: ~ October, Procedure Location: [facility] Co-morbidities: hypertension Orders: Labs Yes Imaging / [...] Provider Department Center 09/09/2021 10:[address] ANBWBA ANBW Problem Noted Date Diagnosed Date Neck pain, chronic 08/09/2024 Status post hysterectomy 02/05/2024 Overview (02/05/2024): 05/07/09 Intertriginous candidiasis 11/04/2023 Medical cannabis use 06/30/2023 S/P robotic samaria-en-y gastri c bypass, takedown of previous Joy fundoplication, hiatal hernia repair 09/23/2022 Overview (09/23/2022): Dr. Butler Severe episode of recurrent major depressive disorder, without psychotic features 05/05/2021 Benign essential tremor 05/05/2021 Vision loss of right eye 09/30/2020 Overview (09/30/2020): 07/2020, spontaneous bleed. Followed by ophthalmology COVID-19 virus infection 02/15/2020 Left elbow pain 04/26/2019 Contusion of left ulnar nerve 04/26/2019 Carpal tunnel syndrome on left 07/13/2018 Carpal tunnel syndrome on right 07/13/2018 Trigger finger, right middle finger 06/15/2018 Thumb pain, left 06/15/2018 Epidermal inclusion cyst 10/25/2017 Controlled substance agreement signed 08/12/2017 Overview (08/31/2024): Prescriber: Dr. Melvin Hernández, Secondary Sayra Baigm, DO Ok to fill at same amount/dose/frequency in my absence. Controlled substance agreement: 08/31/2024 NURSERYMAN ASSISTANT query on 08/31/2024 was acceptable. Last UDS on 08/31/2024 Cyst, breast, right 02/25/2017 Fluid level behind tympanic membrane of left ear 07/08/2016 Leucocytosis 12/03/2015 HTN (hypertension) 12/02/2015 Chronic back pain 12/02/2015 Alcohol use disorder, mild, abuse 12/01/2015 Eczema of both hands 09/13/2015 Acute right-sided low back pain without sciatica 09/13/2015 Numbness and tingling in both hands 09/13/2015 Palpitations 12/20/2013 Sensorineural hearing loss, unilateral 3 Overview (06/28/2012): left low frequency from 250 to 750 Hz Subjective tinnitus 06/28/2012 Elevated LFTs 03/07/2012 Adjustment disorder with mixed anxiety and depre ssed mood 02/19/2010 Recurrent cold sores 02/17/2008 HIATAL HERNIA 05/31/2006 STRESS 05/31/2006 CHRONIC CONSTIPATION 05/31/2006 Gastroesophageal reflux disease without esophagi tis 05/31/2006 Overview (08/09/2024 7:36 AM CDT): >>OVERVIEW FOR ESOPHAGEAL REFLUX WRITTEN ON 05/12/2010 1:09 PM BY LAN CHURCH MD EGD 04/2010 normal Resolved Problems Problem Noted Date Diagnosed Date Resolved Date Morbid obesity with BMI of 45.0-49.9, adult 08/15/2021 08/09/2024 Screening for endocrine, met abolic and immunity disorder 08/15/2021 08/09/2024 Contusion of left elbow 04/26/201907/27 Delayed wound healing 12/15/20172024 Overview (12/15/2017): Right breast wound, s/p cyst removal Substance or medication-pam claudy anxiety disorder 12/01/2015 10/20/2021 Caffeine dependence 12/01/2015 05/05/19 22 Sepsis 05/29/2015 08/09/2024 Strep pharyngitis 05/29/2015 09/30/2020 Elevated blood pressure 12/20/201310/28 Family history of sudden hearing loss 06/28/2012 12/20/2013 Overview (06/28/2012): brother and aunt with similar symptoms Abdominal pain, epigastric 03/07/2012 0 12/20/2013 Status post Joy fundoplic ation (without gastrostomy tube) procedure 05/09/2010 12/20/2013 Other disorder of menstruati on and other abnormal bleeding from female genital tract 11/24/2007 05/08/2011 Threatened premature labor, unspecified as to episode of care 01/15/2007 02/17/2008 Overview (01/15/2007): Both prior pregnancies with PTL, delivered quickly, but at term. Breech presentation without mention of version, antepartum 01/15/2007 02/17/2008 Overview (01/15/2007): Jeremie breech at admission 01/15/07 Encounters Date Type Department Care Team Description 09/14/2024 Travel 09/11/2024 Refill [facility] [address] [place] [phone] Sayra Gandhi, Refill Request (Hydroxyzine) 09/06/2024 Transcribe Orders [facility] [address] [facility] [place] [address] Melvin Hernández MD 08/31/2024 3:00 PM CDT Office Visit [facility] [address] [place] [address] Melvin Hernández MD Occ Med (Work comp neck, right shoulder and low back injury, DOI: 03/27/24) 08/31/2024 Travel 08/15/2024 Refill [facility] [address] [place] [address] Melvin Hernández MD Refill Request (Oxycodone) 08/10/2024 7:07 AM CDT - 08/10/2024 11:59 PM CDT Hospital Encounter [facility] [address] [place] [address] Melvin Hernández MD Lumbar radiculopathy; Lumbar disc herniation; Cervical radiculopathy; Strain of right shoulder, subsequent encounter 08/10/2024 Travel 08/09/2024 7:30 AM CDT Office Visit [facility] [address] [place] [address] Sayra Gandhi, DO Physical 08/08/2024 Travel 08/08/2024 Refill [facility] [address] [place] [address] Melvin Hernández MD Refill Request (Lorazepam) 08/08/2024 Refill [facility] [address] [place] [address] Melvin Hernández MD Refill Request (oxyCODONE-acetamin ophen) 08/03/2024 8:00 AM CDT Office Visit [facility] [address] [place] [address] Melvin Hernández MD Occ Med (Low Back, Right shoulder, same pian level, Work Letter/) 08/03/2024 Travel 08/02/2024 9:50 AM CDT Ancillary Procedure [facility] [address] [facility] [address] [place] [address] 08/02/2024 9:45 AM CDT Ancillary Procedure [facility] [address] [facility] [address] [place] [address] 08/01/[address] [address] Sayra Gandih DO Medication Management (buPROPion (WELLBUTRIN XL) 300 mg Extended-Release tablet ) 08/01/2024 Travel 07/31/2024 Orders Only [facility] [address] [facility] [address] [place] [address] Fernando Patel MD <No scans attached> 07/31/[address] [address] Sayra Gandhi DO Refill Request (Buspirone) 07/27/2024 Refill [facility] [address] [place] [address] Melvin Hernández MD Refill Request 07/24/[address] [address] Sayra Gandhi DO Refill Request (Omeprazole) 07/19/[address] [address] Sayra Gandhi DO Refill Request (Diclofenac Topical) 07/12/2024 Refill [facility] [address] [place] [address] Melvin Hernández MD Refill Request (Percoet) 07/10/2024 Telephone [facility] [address] [place] [address] Melvin Hernández MD Follow Up 06/28/2024 8:10 AM CDT Procedure Only [facility] [address] [facility] [address] Melvin Hernández MD Procedure (Work comp - USGI - right should... 06/27/2024 Travel 06/26/2024 9:20 AM CDT Office Visit [facility] [address] [place] [address] Melvin Hernández MD [facility] Med (Work comp right shoulder and low back injury, DOI: 03/27/24) 06/26/2024 Refill [facility] [address] [place] [address] Sayra Gandhi, DO Refill Request 06/25/2024 Travel 06/15/2024 Refill [facility] [address] [place] [address] Sayra Gandhi, DO Refill Request (Hydroxyzine Hcl) from Last 3 Months Immunizations Immunization Administration Dates Next Due COVID-19 vaccine (APERA BAGS NTeVoter 30mcg/0.3mL) PF, MDV 06/04/2020,05/14/2020 Hepatitis B (Adult) 04/23/2015,11/22/2014,1997 Influenza A (H1N1), Live Intranasal 01/24/2009 Influenza, IIV3 (Age >=3 years) 01/31/20 24,02/13/2013,03/25/2012,2009,01/02/2009,02/14/2008,01/05/2007 Influenza, IIV4 12/29/2022, 2,01/23/2021,2017,01/29/2017,12/06/2015,11/22/2014,1 04/16/2013 Influenza, IIV4 (=>6mos) MDV 01/07/2019 Influenza, Injectable, [...] Never Smokeless Tobacco: Never Tobacco Cessation:Counseling Given: Yes Alcohol Use Standard Drinks/Week Comments Not Currently 0 (1 standard drink = 0.6 oz pure alcohol) DWI, 2014, quit drinking 03/2021 PHQ-2 Answer Date Recorded PHQ-2 TOTAL SCORE 4 08/09/2024 Social Connections Answer Date Recorded Do you often feel lonely or isolated from those around you? 0 08/09/2024 Financial Resource Strain Answer Date R ecorded Difficulty of Paying Living Expenses 3 08/09/2024 Difficulty of Paying Living Expenses Not on file 08/09/2024 Food Insecurity Answer Date Recorded Do you worry your food will run out before you are able to buy more? 1 08/09/2024 Transportation Needs Answer Date Record ed Does lack of transportation keep you from medica l appointments? 1 08/09/2024 Does lack of transportation keep you from work, meetings or getting things that you need? 1 08/09/2024 Housing Stability Answer Date Recorded What is your housing situation today? 1 08/09/2024 Interpersonal Safety Answer Date Record ed Are you being hit, kicked, p ushed or yelled at (see row info)? No 09/23/2023 Interpersonal Safety Abuse 12 - 18 Not on file 09/23/2023 Interpersonal Safety Ambulatory Vulnerability No t on file 09/23/2023 Utilities Answer Date Recorded Do you have trouble paying f or utilities (for example, heat, electricity, water, phone)? 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 Not on file Not on file Not on file Obstetrics History Para Term AB IAB SAB Ectopic Multiple Livin g Live Births 4 3 2 0 1 1 3 Date Outcome GA Total Labor Labor/2nd/3rd Weight Sex Type Anes PTL Bhavani A1 A5 Name Clin Term Term SAB Para Last Filed Vital Signs Vital Sign Reading Time Taken Comments Blood Pressure 115/76 08/31/2024 3:04 PM CDT Pulse 78 08/31/2024 3:04 PM CDT Temperature 36.8 C (98.3 F) 08/31/2024 3:04 PM CDT Respiratory Rate 18 08/09/2024 7:29 AM CDT Oxygen Saturation 99% 08/31/2024 3:04 PM CDT Inhaled Oxygen Concentration - - Weight 65.2 kg (143 lb 12.8 oz) 08/31/2024 3:04 PM CDT Height 161.5 cm (5' 3.58) 08/09/2024 7:29 AM CD T Body Mass Index 25.01 08/09/2024 7:29 AM CDT Plan of Treatment Upcoming Encounters Date Type Department Care Team (Late st Contact Info) Description 09/15/2024 2:20 PM CDT Office Visit [facility] [address] [place] [address] Melvin Hernández MD [address] [place] [address] Arrived 10/20/2024 7:50 AM CDT Office Visit [address] [phone] Sayra Gandhi DO [address] [place] [address] 10/30/2024 8:40 AM CDT Office Visit [facility] [address] [place] [address] Melvin Hernández MD [address] [facility] [address] Health Maintenance Due Date Last Done Comments Pneumococcal series for age 6-49 (1 of 2 - PCV) 11/28/1998 BMI (ht and wt on same day) for age 18+ 08/09/2025 08/09/2024, 03/13/2024, 04/23/2023, Additional history exists Depression screening for age 12+ 08/09/2025 08/09/2024, 01/28/2024, 11/16/2022, Additional history exists Tetanus booster 09/03/2028 09/03/2018, 04/30, 02/08/2002 HIV for age 15-65 Completed 05/22/2010 Hepatitis C screening for ag e 18-79 Completed 05/22/2010 Hepatitis B series for 19+ Completed 04/23, 11/22/2014, 04/25/1997 Tdap Completed 09/03/2018, 05/22/2010 COVID-19 vaccine series Completed 01/31/20, 01/26/2023, 08/10/2022, Additional history exists Influenza Vaccine Completed 01/31/2024, , 01/23/2022, Additional history exists Procedures Procedure Name Priority Date/Time Associated Diagnosis Comments AMB EPIDURAL STEROID INJECTION Routine 09/15/2024 7:59 AM CDT Spinal stenosis, lumbar region, with neurogenic claudication MR SPINE LUMBAR WO Routine 08/10/2024 7: 54 AM CDT Lumbar radiculopathy Lumbar disc herniation MR SPINE CERVICAL WO Routine 08/10/2024 7:35 AM CDT Cervical radiculopathy Strain of right shoulder, subsequent encounter FERRITIN Routine 08/09/2024 8:22 AM CDT S/P robotic samaria-en-y gastric bypass, takedown of previous Joy fundoplication, hiatal hernia repair VITAMIN D 25 (DEFICIENCY) Routine 08/09/2024 8:22 AM CDT S/P robotic samaria-en-y gastric bypass, takedown of previous Joy fundoplication, hiatal hernia repair VITAMIN B12 Routine 08/09/2024 8:22 AM CDT S/P robotic samaria-en-y gastric bypass, takedown of previous Joy fundoplication, hiatal hernia repair COMP METABOLIC PANEL Routine 08/09/2024 8:22 AM CDT Severe episode of recurrent major depressive disorder, without psychotic features (HC) CBC WITH AUTO DIFFERENTIAL Routine 08/09/2024 8:22 AM CDT S/P robotic samaria-en-y gastric bypass, takedown of previous Joy fundoplication, hiatal hernia repair Severe episode of recurrent major depressive disorder, without psychotic features (HC) TSH WITH REFLEX Routine 08/09/2024 8:22 AM CDT S/P robotic samaria-en-y gastric bypass, takedown of previous Joy fundoplication, hiatal hernia repair Severe episode of recurrent major depressive disorder, without psychotic features (HC) LIPID PANEL W REFLEX MEASURED LDL Routine 08/09/2024 8:22 AM CDT Screening cholesterol level MAGNESIUM Routine 08/09/2024 8:22 AM CDT Gastroesophageal reflux disease without esophagitis XR SPINE CERVICAL 2 VIEWS FLEXION AND EXTENSION Routine 08/02/2024 9:57 AM CDT Pain of cervical spine XR SPINE LUMBAR MINIMUM 4 VIEWS Routine 08/02/2024 9:57 AM CDT Pain of lumbar spine BEDSIDE US STUDY ARCHIVE Routine 06/28/2024 10:38 AM CDT Strain of right shoulder, initial encounter Tendinitis of right rotator cuff ANTI HIV 1/2 Routine 05/22/2010 9:48 AM MARINE 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 Normal alignment. No fractures. 2. Lumbar spondylosis 3. At L5-S1, posterior disc herniation. Annular fissure. No spinal canal narrowing. Mild narrowing of the bilateral neural foramina 4. No spinal canal or neural foraminal narrowing at the remaining levels Dictated by Nico Buitrago MD @ 08/10/2024 12:38:12 PM (Electronically Signed) Narrative 08/10/2024 12:38 PM CDT For Patients: As a result of the Cures Act, medical imaging exams and procedure reports are released immediately into your electronic medical record. You may view this report before your referring provider. If you have questions, please contact your health care provider. INDICATION: Lumbar radiculopathy. Low back pain. COMPARISON: 08/02/2024. 08/25/2023. Technique Sagittal T1, T2, and STIR sequences. Axial T1 and T2 weighted sequences. FINDINGS: Normal vertebral body alignment. No fractures. No vertebral body loss of height. No ligamentous injury. No suspicious osseous lesions. Normal conus terminates at L1. At T12-L1 L1-2 L2-3: No spinal canal or neural foraminal narrowing. L3-4: Disc degeneration posted disc bulge. Flattening of ventral thecal sac. No narrowing of spinal canal. No neural foraminal narrowing. Mild facet arthropathy. L4-5: Disc degeneration posterior disc herniation measures approximately 3 mm short axis. No narrowing of spinal canal. No neural foraminal narrowing. L5-S1: Disc degeneration loss disc height. Posterior disc herniation measures approximately 3 mm in short axis with an annular fissure. No narrowing of spinal canal. No impingement of the traversing S1 nerve roots. Mild narrowing of the bilateral foramina. Mild facet arthropathy. Normal visualized SI joints. Normal paraspinal soft tissues. Procedure Note Nico Buitrago MD, PhD - 08/10/2024 For Patients: As a result of the Cures Act, medical imagingexams and procedure reports are released immediately into your electronicmedical record. You may view this report before your referring provider.If you have questions, please contact your health care provider. INDICATION: Lumbar radiculopathy. Low back pain. COMPARISON: 08/02/2024. 08/25/2023. Technique Sagittal T1, T2, and STIR sequences. Axial T1 and T2 weightedsequences. FINDINGS: Normal vertebral body alignment. No fractures. No vertebral body loss ofheight. No ligamentous injury. No suspicious osseous lesions. Normal conusterminates at L1. At T12-L1 L1-2 L2-3: No spinal canal or neural foraminal narrowing. L3-4: Disc degeneration posted disc bulge. Flattening of ventral thecalsac. No narrowing of spinal canal. No neural foraminal narrowing. Mildfacet arthropathy. L4-5: Disc degeneration posterior disc herniation measures approximately 3mm short axis. No narrowing of spinal canal. No neural foraminalnarrowing. L5-S1: Disc degeneration loss disc height. Posterior disc herniationmeasures approximately 3 mm in short axis with an annular fissure. Nonarrowing of spinal canal. No impingement of the traversing S1 nerveroots. Mild narrowing of the bilateral foramina. Mild facet arthropathy. Normal visualized SI joints. Normal paraspinal soft tissues. IMPRESSION: 1. Normal alignment. No fractures. 2. Lumbar spondylosis 3. At L5-S1, posterior disc herniation. Annular fissure. No spinal canalnarrowing. Mild narrowing of the bilateral neural foramina 4. No spinal canal or neural foraminal narrowing at the remaining levels Dictated by Nico Buitrago MD @ 08/10/2024 12:38:12 PM (Electronically Signed) us Melvin Hernández MD MR Final Resu lt * MR SPINE CERVICAL WO (08/10/2024 7:35 AM CDT) Anatomical Region Laterality Modality Spine, CERVICAL SPINE Magnetic R esonance 08/10/2024 12:3 3 PM CDT Impressions 08/10/2024 12:33 PM CDT 1. Normal alignment. No fractures. 2. Normal cord signal. 3. No spinal canal or neural foraminal narrowing at all levels. Dictated by Nico Buitrago MD @ 08/10/2024 12:33:46 PM (Electronically Signed) Narrative 08/10/2024 12:33 PM CDT For Patients: As a result of the Cures Act, medical imaging exams and procedure reports are released immediately into your electronic medical record. You may view this report before your referring provider. If you have questions, please contact your health care provider. INDICATION: Radiculopathy. Right shoulder pain. COMPARISON: 08/02/2024. 10/21/2011. Technique Sagittal T1, T2, and STIR sequences. Axial T2/gradient sequences. FINDINGS: Normal vertebral body facet alignment. No fractures. No vertebral body loss of height. No spondylolisthesis. No ligamentous injury. No suspicious osseous lesions. Normal cord signal. No intradural mass or lesion. C1-2: No spinal canal narrowing. C2-3, C3-4: No spinal canal or neural foraminal narrowing. C4-5: No spinal canal or neural foraminal narrowing. C5-6: No spinal canal or neural foraminal narrowing. C6-7: Mild disc degeneration. No narrowing of spinal canal. No neural foraminal narrowing. C7-T1: No spinal canal or neural foraminal narrowing. No spinal canal or neural foraminal narrowing in the visualized upper thoracic spine. Procedure Note Nico Buitrago MD, PhD - 08/10/2024 For Patients: As a result of the Cures Act, medical imagingexams and procedure reports are released immediately into your electronicmedical record. You may view this report before your referring provider.If you have questions, please contact your health care provider. INDICATION: Radiculopathy. Right shoulder pain. COMPARISON: 08/02/2024. 10/21/2011. Technique Sagittal T1, T2, and STIR sequences. Axial T2/gradientsequences. FINDINGS: Normal vertebral body facet alignment. No fractures. No vertebral bodyloss of height. No spondylolisthesis. No ligamentous injury. No suspiciousosseous lesions. Normal cord signal. No intradural mass or lesion. C1-2: No spinal canal narrowing. C2-3, C3-4: No spinal canal or neural foraminal narrowing. C4-5: No spinal canal or neural foraminal narrowing. C5-6: No spinal canal or neural foraminal narrowing. C6-7: Mild disc degeneration. No narrowing of spinal canal. No neuralforaminal narrowing. C7-T1: No spinal canal or neural foraminal narrowing. No spinal canal or neural foraminal narrowing in the visualized upperthoracic spine. IMPRESSION: 1. Normal alignment. No fractures. 2. Normal cord signal. 3. No spinal canal or neural foraminal narrowing at all levels. Dictated by Nico Buitrago MD @ 08/10/2024 12:33:46 PM (Electronically Signed) Melvin Hernández MD MR Final Resu lt * TSH WITH REFLEX (08/09/2024 8:22 AM CDT) TSH W/REFLEX TO FT4 1.87 mIU/L [facility] Comment: Reference Range > or = 20 Years 0.40-4.50 Ranges First trimester 0.26-2.66 Second trimester 0.55-2.73 Third trimester 0.43-2.91 Blood BLOOD SPECIMEN / Unknown 08/09/2024 8:22 AM CDT 08/09/2024 8:24 AM CDT Narrative [facility] - 08/10/2024 5:16 AM CDT FASTING:YES FASTING: YES Sayra Gandhi DO CHEMISTRY Final Result [facility] [address] [place] [address], [facility] [address] [place] [address] * LIPID PANEL W REFLEX MEASURED LDL (08/09/2024 8:22 AM CDT) CHOLESTEROL, TOTAL 158 <200 mg/dL [facility] HDL CHOLESTEROL 55 > OR = 50 mg/dL [facility] TRIGLYCERIDES 89 <150 mg/dL [facility] LDL-CHOLESTEROL 85 mg/dL (calc) [facility] Comment: Reference range: <100 Desirable range <100 mg/dL for primary prevention; <70 mg/dL for patients with CHD or diabetic patients with > or = 2 CHD risk factors. LDL-C is now calculated using the Roslyn calculation, which is a validated novel method providing better accuracy than the Friedewald equation in the estimation of LDL-C. Lan SS et al. REESE. 2013;310(19): 2734-8191 (http://education.[employer]faq/MWV933) CHOL/HDLC RATIO 2.9 <5.0 (calc) [facility] NON HDL CHOLESTEROL 103 <130 mg/dL (calc) [facility] Comment: For patients with diabetes plus 1 major ASCVD risk factor, treating to a non-HDL-C goal of <100 mg/dL (LDL-C of <70 mg/dL) is considered a therapeutic option. Blood BLOOD SPECIMEN / Unknown 08/09/2024 8:22 AM CDT 08/09/2024 8:24 AM CDT Narrative [facility] - 08/10/2024 4:09 AM CDT FASTING:YES FASTING: YES Sayra Gandhi DO CHEMISTRY Final Result [facility] [address] [place] [address], [facility] [address] [place] [address] * VITAMIN D 25 (DEFICIENCY) (08/09/2024 8:22 AM CDT) VITAMIN D,25-OH,TOTAL,IA 67 30 - 100 ng/mL [facility] Comment: Vitamin D Status 25-OH Vitamin D: Deficiency: <20 ng/mL Insufficiency: 20 - 29 ng/mL Optimal: > or = 30 ng/mL For 25-OH Vitamin D testing on patients on D2-supplementation and patients for whom quantitation of D2 and D3 fractions is required, the QuestAssure[facility](TM) 25-OH VIT D, (D2,D3), LC/MS/MS is recommended: order code 09289 (patients >2yrs). See Note 1 Note 1 For additional information, please refer to http://education.[employer]faq/SPN133 (This link is being provided for informational/ educational purposes only.) Blood BLOOD SPECIMEN / Unknown 08/09/2024 8:22 AM CDT 08/09/2024 8:24 AM CDT Narrative [facility] - 08/10/2024 5:16 AM CDT FASTING:YES FASTING: YES Sayra Gandhi DO SEND OUTS Final Result [facility] [address] [place] [address], [facility] [address] * (ABNORMAL) CBC AND DIFFERENTIAL (08/09/2024 8:22 AM CDT) WHITE BLOOD CELL COUNT 11.2(H) 3.8 - 10.8 Thousand/u L [facility] RED BLOOD CELL COUNT 4.45 3.80 - 5.10 Million/uL [facility] HEMOGLOBIN 13.0 11.7 - 15.5 g/dL [facility] HEMATOCRIT 42.2 35.0 - 45.0 % [facility] MCV 94.8 80.0 - 100.0 fL [facility] MCH 29.2 27.0 - 33.0 pg [facility] MCHC 30.8(L) 32.0 - 36.0 g/dL [facility] Comment: For adults, a slight decrease in the calculated MCHC value (in the range of 30 to 32 g/dL) is most likely not clinically significant; however, it should be interpreted with caution in correlation with other red cell parameters and the patient's clinical condition. RDW 12.7 11.0 - 15.0 % [facility] PLATELET COUNT 361 140 - 400 Thousand/u L [facility] MPV 9.6 7.5 - 12.5 fL [facility] ABSOLUTE NEUTROPHILS 4,827 1,500 - 7,800 cells/uL [facility] ABSOLUTE LYMPHOCYTES 5,163(H) 850 - 3,900 cells/uL [facility] ABSOLUTE MONOCYTES 1,019(H) 200 - 950 cells/uL [facility] ABSOLUTE EOSINOPHILS 90 15 - 500 cells/uL [facility] ABSOLUTE BASOPHILS 101 0 - 200 cells/uL [facility] NEUTROPHILS 43.1 % [facility] LYMPHOCYTES 46.1 % [facility] MONOCYTES 9.1 % [facility] EOSINOPHILS 0.8 % [facility] BASOPHILS 0.9 % [facility] Blood BLOOD SPECIMEN / Unknown 08/09/2024 8:22 AM CDT 08/09/2024 8:24 AM CDT Narrative [facility] - 08/10/2024 2:26 AM CDT FASTING:YES FASTING: YES Sayra Gandhi DO HEMATOLOGY Final Result [facility] [address] [place] [address], [facility] [address] [place] [address] * MAGNESIUM (08/09/2024 8:22 AM CDT) MAGNESIUM 2.0 1.5 - 2.5 mg/dL [facility] Blood BLOOD SPECIMEN / Unknown 08/09/2024 8:22 AM CDT 08/09/2024 8:24 AM CDT Narrative [facility] - 08/10/2024 4:09 AM CDT FASTING:YES FASTING: YES us Sayra Gandhi DO CHEMISTRY Final Result [facility] [address] [place] [address], [place] [phone] [facility] [address] [place] [address] * FERRITIN (08/09/2024 8:22 AM CDT) Pathologist [facility] FERRITIN 18 16 - 232 ng/mL [facility] Blood BLOOD SPECIMEN / Unknown 08/09/2024 8:22 AM CDT 08/09/2024 8:24 AM CDT Narrative [facility] - 08/10/2024 5:16 AM CDT FASTING:YES FASTING: YES us Sayra Gandhi DO CHEMISTRY Final Result Performing Organization Address [facility]/ZIP Co de Phone Number [facility] [address] [place] [address], [place] [phone] [facility] [address] [place] [address] * (ABNORMAL) VITAMIN B12 (08/09/2024 8:22 AM CDT) Pathologist [facility] VITAMIN B12 1,179(H) 200 - 1,100 pg/mL [facility] Blood BLOOD SPECIMEN / Unknown 08/09/2024 8:22 AM CDT 08/09/2024 8:24 AM CDT Narrative [facility] - 08/10/2024 5:16 AM CDT FASTING:YES FASTING: YES us Sayra Gandhi DO CHEMISTRY Final Result [facility] [address] [facility] [place] [address], [facility] [address] [place] [address] * COMP METABOLIC PANEL (08/09/2024 8:22 AM CDT) GLUCOSE 80 65 - 99 mg/dL [facility] Comment: Fasting reference interval UREA NITROGEN (BUN) 13 7 - 25 mg/dL [facility] CREATININE 0.74 0.50 - 0.99 mg/dL [facility] EGFR 102 > OR = 60 mL/min/1. 73m2 [facility] BUN/CREATININE RATIO SEE NOTE: (calc) [facility] Comment: Not Reported: BUN and Creatinine are within reference range. SODIUM 139 135 - 146 mmol/L [facility] POTASSIUM 4.5 3.5 - 5.3 mmol/L [facility] CHLORIDE 103 98 - 110 mmol/L [facility] CARBON DIOXIDE 31 20 - 32 mmol/L [facility] CALCIUM 9.2 8.6 - 10.2 mg/dL [facility] PROTEIN, TOTAL 6.3 6.1 - 8.1 g/dL [facility] ALBUMIN 3.8 3.6 - 5.1 g/dL [facility] GLOBULIN 2.5 1.9 - 3.7 g/dL (calc) [facility] ALBUMIN/GLOBULIN RATIO 1.5 1.0 - 2.5 (calc) [facility] BILIRUBIN, TOTAL 0.4 0.2 - 1.2 mg/dL [facility] ALKALINE PHOSPHATASE 65 31 - 125 U/L [facility] AST 17 10 - 30 U/L [facility] ALT 25 6 - 29 U/L [facility] Blood BLOOD SPECIMEN / Unknown 08/09/2024 8:22 AM CDT 08/09/2024 8:24 AM CDT Narrative [facility] - 08/10/2024 4:09 AM CDT FASTING:YES FASTING: YES Sayra Gandhi DO CHEMISTRY Final Result [facility] [address] [place] [address], [place] [phone] [facility] [address] [place] [address] * XR SPINE CERVICAL 2 VIEWS FLEXION AND EXTENSION (08/02/2024 9:57 AM CDT) Anatomical Region Laterality Modality Spine, CERVICAL SPINE Digital [facility] 08/02/2024 9:57 AM CDT Impressions 08/03/2024 7:36 AM CDT Cervical spine: Retrolisthesis of C4 on C5, measuring approximately 2 mm in extension and reducing in flexion. Cervical vertebral body heights are maintained. Mild multilevel disc height loss and facet hypertrophy. Prevertebral soft tissues are unremarkable. Lumbar spine: 5 lumbar type vertebral bodies. Mild retrolisthesis of L4 on L5. Sagittal alignment of the lumbar spine is not significantly changed in flexion or extension. Mild chronic anterior wedging of the L1 vertebral body and visualized lower thoracic vertebral bodies. Remaining lumbar vertebral body heights are maintained. Moderate disc height loss at L5-S1, with associated degenerative endplate changes. Facet hypertrophy in the lower lumbar spine. Surgical clips in the right upper quadrant. Narrative 08/03/2024 7:36 AM CDT For Patients: As a result of the Cures Act, medical imaging exams and procedure reports are released immediately into your electronic medical record. You may view this report before your referring provider. If you have questions, please contact your health care provider. EXAM: XR SPINE LUMBAR MINIMUM 4 VIEWS, XR SPINE CERVICAL 2 VIEWS FLEXION AND EXTENSION LOCATION: [facility] DATE: 08/02/2024 INDICATION: Pain Of Lumbar Spine COMPARISON: None. Procedure Note Anup Griffith MD - 08/03/2024 For Patients: As a result of the Cures Act, medical imagingexams and procedure reports are released immediately into your electronicmedical record. You may view this report before your referring provider.If you have questions, please contact your health care provider. EXAM: XR SPINE LUMBAR MINIMUM 4 VIEWS, XR SPINE CERVICAL 2 VIEWS FLEXIONAND EXTENSION LOCATION: [facility] DATE: 08/02/2024 INDICATION: Pain Of Lumbar Spine COMPARISON: None. IMPRESSION: Cervical spine: Retrolisthesis of C4 on C5, measuring approximately 2 mmin extension and reducing in flexion. Cervical vertebral body heights aremaintained. Mild multilevel disc height loss and facet hypertrophy.Prevertebral soft tissues are unremarkable. Lumbar spine: 5 lumbar type vertebral bodies. Mild retrolisthesis of L4 onL5. Sagittal alignment of the lumbar spine is not significantly changed inflexion or extension. Mild chronic anterior wedging of the L1 vertebralbody and visualized lower thoracic vertebral bodies. Remaining lumbarvertebral body heights are maintained. Moderate disc height loss at L5-S1,with associated degenerative endplate changes. Facet hypertrophy in thelower lumbar spine. Surgical clips in the right upper quadrant. Fernando Patel MD GENERAL IMAGING Final Result * XR SPINE LUMBAR MINIMUM 4 VIEWS (08/02/2024 9:57 AM CDT) Anatomical Region Laterality Modality Spine, LUMBAR SPINE [facility] 08/02/2024 9:57 AM CDT Impressions 08/03/2024 7:36 AM CDT Cervical spine: Retrolisthesis of C4 on C5, measuring approximately 2 mm in extension and reducing in flexion. Cervical vertebral body heights are maintained. Mild multilevel disc height loss and facet hypertrophy. Prevertebral soft tissues are unremarkable. Lumbar spine: 5 lumbar type vertebral bodies. Mild retrolisthesis of L4 on L5. Sagittal alignment of the lumbar spine is not significantly changed in flexion or extension. Mild chronic anterior wedging of the L1 vertebral body and visualized lower thoracic vertebral bodies. Remaining lumbar vertebral body heights are maintained. Moderate disc height loss at L5-S1, with associated degenerative endplate changes. Facet hypertrophy in the lower lumbar spine. Surgical clips in the right upper quadrant. Narrative 08/03/2024 7:36 AM CDT For Patients: As a result of the Cures Act, medical imaging exams and procedure reports are released immediately into your electronic medical record. You may view this report before your referring provider. If you have questions, please contact your health care provider. EXAM: XR SPINE LUMBAR MINIMUM 4 VIEWS, XR SPINE CERVICAL 2 VIEWS FLEXION AND EXTENSION LOCATION: [facility] DATE: 08/02/2024 INDICATION: Pain Of Lumbar Spine COMPARISON: None. Procedure Note Anup Griffith MD - 08/03/2024 For Patients: As a result of the Cures Act, medical imagingexams and procedure reports are released immediately into your electronicmedical record. You may view this report before your referring provider.If you have questions, please contact your health care provider. EXAM: XR SPINE LUMBAR MINIMUM 4 VIEWS, XR SPINE CERVICAL 2 VIEWS FLEXIONAND EXTENSION LOCATION: [facility] DATE: 08/02/2024 INDICATION: Pain Of Lumbar Spine COMPARISON: None. IMPRESSION: Cervical spine: Retrolisthesis of C4 on C5, measuring approximately 2 mmin extension and reducing in flexion. Cervical vertebral body heights aremaintained. Mild multilevel disc height loss and facet hypertrophy.Prevertebral soft tissues are unremarkable. Lumbar spine: 5 lumbar type vertebral bodies. Mild retrolisthesis of L4 onL5. Sagittal alignment of the lumbar spine is not significantly changed inflexion or extension. Mild chronic anterior wedging of the L1 vertebralbody and visualized lower thoracic vertebral bodies. Remaining lumbarvertebral body heights are maintained. Moderate disc height loss at L5-S1,with associated degenerative endplate changes. Facet hypertrophy in thelower lumbar spine. Surgical clips in the right upper quadrant. us Fernando Patel MD GENERAL IMAGING Final Result * BEDSIDE US STUDY ARCHIVE (06/28/2024 10:38 AM CDT) Narrative Gris Hart Juanita - 06/28/2024 10:38 AM CDT The patient was seen for ultrasound guided injection by Dr. Melvin Hernández. Ultrasound was not used for diagnostic purposes, but to guide the needle placement and document the position of the injection. See patient's EPIC encounter for the detail of the procedure; see RUSTY for saved images of the injection. us Melvin Hernández MD PROCEDURE ORD Final Resu lt * ANTI HCV (05/22/2010 9:48 AM MARINE SUPERINTENDENT) ANTI HCV Non-reacti ve [facility] Blood specimen (specimen) BLOOD SPECIMEN / Unknown 05/22/2010 9:48 AM MARINE SUPERINTENDENT 05/22/2010 9:40 AM MARINE SUPERINTENDENT Courtney Loyd SHARE DAIRY FARMER SEND OUTS Final Result [facility] INTERNAL ZIP [address] [address] * ANTI HIV 1/2 (05/22/2010 9:48 AM MARINE SUPERINTENDENT) ANTI HIV 1/2 Non-reacti ve [facility] Blood specimen (specimen) BLOOD SPECIMEN / Unknown 05/22/2010 9:48 AM MARINE SUPERINTENDENT 05/22/2010 9:40 AM MARINE SUPERINTENDENT Courtney Loyd SHARE DAIRY FARMER SEND OUTS Final Result Performing Organization Address City/[facility]/ZIP Co de Phone Number [facility] INTERNAL ZIP [phone] [address] from Last 3 Months or Most Recently Relevant to Health Maintenance Insurance MEDICAID WORKERS COMP [id number] [place] [id number] WORKERS COMP [id number] [place] [id number] MEDICAID Advance Directives * Full Code (Latest Code [...] 3:04 PM 12/17/2015 6:18 PM Care Teams Blindstitch Machine Operator Relationship Specialty Start Date End Date Sayra Gandhi DO [address] [place] [address] PCP - General Internal Medicine 11/20/15 Pramod Butler MD [address] [address] Consulting Physician Surgery - General 08/15/21 Jennifer Avila MD [address] [place] [address] Hematology Hematology and Oncology 11/26/21 Sushma Trivedi, SHARE DAIRY FARMER [address] [place] [address] Nurse Practitioner Hematology and Oncology - Pediatric 11/26/21 Yessica Rodriguez RN [address] [address] Ticket Counter Registered Nurse 08/15/[address] [phone] Registered Dietitian Miller Head Assistant Wet Process 08/15/21 Kira Cooley PA [address] [phone] Physician Primary School Teacher 09/23/22
--- OUTSIDE RECORDS SUMMARY | 2024-09-16 00:24 | XMS_ITS | Clinical Summary ---
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 Name Role Phone Hiram Sayra Camacho DO Primary Care Provider Pramod Butler MD Unavailable Jennifer Avila MD Unavailable [phone] Sushma Trivedi DENSITOMETRIST Unavailable Yessica Rodriguez RN Unavailable [phone] Unavailable [phone] Kira Cooley Unavailable [phone] Allergies Active Allergy Reactions Criticality Noted Date Comments Kelly Amaral High 05/21/2009 Hydromorphone Itching Medium 05/31/2006 Per patient, happened when she was getting significant doses on a FUR TRIMMER pump Hydromorphone-Guaifenes in Rash 08/03/2022 Meperidine Rash,Itching Low 05/21/2009 Morphine Rash,Itching Low 05/21/2009 When on FUR TRIMMER with 'high doses' per patient Nsaids (Non-Steroidal [...] // Jerri Adam RN, Bariatric Nurse Clinician, [facility] 09/28/2022. Medications multivitamin pediatric chewable [...] 25 Active diclofenac topical 1 % gelIndications:Ac [place] right-sided low back pain with right-sided sciatica [...] Est. Pgm Completion: ~ October, Procedure Location: [facility] Co-morbidities: hypertension Orders: Labs Yes Imaging / [...] 08/12/2017 Overview (08/31/2024): Prescriber: [facility] Melvin Hern[facility], DO Ok to fill at same amount/dose/frequency in my absence. Controlled substance agreement: 08/31/2024 HALL COORDINATOR query on 08/31/2024 was acceptable. Last UDS [...] Encounters Date Type Department Care Team Description 09/15/2024 2:20 PM CDT Office Visit [facility] [address] [facility] [address] Melvin Hernández MD Procedure (Bilateral L5-S1 TFESI) 09/14/2024 Travel 09/11/2024 Refill [facility] [address] [place] [address] Sayra Gandhi, Refill Request (Hydroxyzine) 09/06/2024 Transcribe Orders [facility] [address] [place] [address] Melvin Hernández MD 08/31/2024 3:00 PM CDT Office Visit [facility] [address] [place] [address] Melvin Hernández MD Occ Med (Work comp neck, right shoulder and low back injury, DOI: 03/27/24) 08/31/2024 Travel 08/15/2024 Refill [facility] [address] [place] [address] Melvin Hernández MD Refill Request (Oxycodone) 08/10/2024 7:07 AM CDT - 08/10/2024 11:59 PM CDT Hospital Encounter [facility] [address] [place] [address] Melvin Hernández MD Lumbar radiculopathy; Lumbar disc herniation; Cervical radiculopathy; Strain of right shoulder, subsequent encounter 08/10/2024 Travel 08/09/2024 7:30 AM CDT Office Visit [facility] [address] [place] [address] Sayra Gandhi, DO Physical 08/08/2024 Travel 08/08/2024 Refill [facility] [address] [place] [address] Melvin Hernández MD Refill Request (Lorazepam) 08/08/2024 Refill [facility] [address] [place] [address] Melvin Hernández MD Refill Request (oxyCODONE-acetamin ophen) 08/03/2024 8:00 AM CDT Office Visit [facility] [address] [place] [address] Melvin Hernández MD Occ Med (Low Back, Right shoulder, same pian level, Work Letter/) 08/03/2024 Travel 08/02/2024 9:50 AM CDT Ancillary Procedure [facility] [address] [facility] [address] [place] [address] 08/02/2024 9:45 AM CDT Ancillary Procedure [facility] [address] [facility] [address] [place] [address] 08/01/[address] [phone] Sayra Gandhi DO Medication Management (buPROPion (WELLBUTRIN XL) 300 mg Extended-Release tablet ) 08/01/2024 Travel 07/31/2024 Orders Only [facility] [address] [facility] [address] [place] [address] Fernando Patel MD <No scans attached> 07/31/2024 Refill [facility] [address] [place] [address] Sayra Gandhi DO Refill Request (Buspirone) 07/27/2024 Refill [facility] [address] [place] [address] Melvin Hernández MD Refill Request 07/24/[address] [address] Sayra Gandhi DO Refill Request (Omeprazole) 07/19/[address] [phone] Sayra Gandhi DO Refill Request (Diclofenac Topical) 07/12/2024 Refill [facility] [address] [place] [address] Melvin Hernández MD Refill Request (Percoet) 07/10/2024 Telephone [facility] [address] [place] [address] Melvin Hernández MD Follow Up 06/28/2024 8:10 AM CDT Procedure Only [facility] [address] [place] [address] Melvin Hernández MD Procedure (Work comp - USGI - right should... 06/27/2024 Travel 06/26/2024 9:20 AM CDT Office Visit [facility] [address] [place] [address] Melvin Hernández MD Occ Med (Work comp right shoulder and low back injury, DOI: 03/27/24) 06/26/2024 Refill [facility] [address] [place] [address] Sayra Gandhi, Refill Request 06/25/2024 Travel from Last 3 Months Immunizations Immunization Administration Dates Next Due COVID-19 vaccine (gifted2you NTech 30mcg/0.3mL) PF, MDV 06/04/2020,05/14/2020 Hepatitis B (Adult) 04/23/2015,11/22/2014,1997 Influenza A (H1N1), Live Intranasal 01/24/2009 Influenza, IIV3 (Age >=3 years) 01/31/20 24,02/13/2013,03/25/2012,2009,01/02/2009,02/14/2008,01/05/2007 Influenza, IIV4 12/29/2022,,01/23/2021,2017,01/29/2017,12/06/2015,11/22/2014,1 04/16/2013 Influenza, IIV4 (=>6mos) MDV 01/07/2019 Influenza, [...] standard drink = 0.6 oz pure alcohol) , 2014, quit drinking 03/2021 PHQ-2 Answer Date [...] on file Legal Sex Female 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 Gender Identity Not on file Sexual Orientation Not on file 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 Not on file Not on file [...] Care Team (Late st Contact Info) Description 10/20/2024 7:50 AM CDT Office Visit [address] [address] Sayra Gandhi [address] [address] 10/30/2024 8:40 AM CDT Office Visit [facility] [address] [place] [address] Melvin Hernández MD [address] [place] [address] Health Maintenance Due Date Last Done Comments [...] ANTI HIV 1/2 Routine 05/22/2010 9:48 AM YARD LABORER Screening examination for venereal disease ANTI HCV Routine 05/22/2010 9:48 AM YARD LABORER Screening examination for venereal disease from Last [...] CDT) TSH W/REFLEX TO FT4 1.87 mIU/L [facility] Comment: Reference Range > or = 20 Years 0.40-4.50 Ranges First trimester 0.26-2.66 Second trimester 0.55-2.73 Third trimester 0.43-2.91 Blood BLOOD SPECIMEN / Unknown 08/09/2024 8:22 AM CDT 08/09/2024 8:24 AM CDT Narrative [facility] - 08/10/2024 5:16 AM CDT FASTING:YES FASTING: YES Sayra Gandhi DO CHEMISTRY Final Result nGame [facility] [address] [place] [address], [facility] [address] [place] [phone] * LIPID PANEL W REFLEX MEASURED LDL (08/09/2024 8:22 AM CDT) CHOLESTEROL, TOTAL 158 <200 mg/dL [facility] HDL CHOLESTEROL 55 > OR = 50 mg/dL [facility] TRIGLYCERIDES 89 <150 mg/dL [facility] LDL-CHOLESTEROL 85 mg/dL (calc) [facility] Comment: Reference range: <100 Desirable range <100 mg/dL for primary prevention; <70 mg/dL for patients with CHD or diabetic patients with > or = 2 CHD risk factors. LDL-C is now calculated using the Roslyn calculation, which is a validated novel method providing better accuracy than the Friedewald equation in the estimation of LDL-C. Lan POOLE et al. REESE. 2013;310(19): 2482-8120 (http://education.Vinylmint/faq/ZXK868) CHOL/HDLC RATIO 2.9 <5.0 (calc) [facility] NON HDL CHOLESTEROL 103 <130 mg/dL (calc) [facility] Comment: For patients with diabetes plus 1 major ASCVD risk factor, treating to a non-HDL-C goal of <100 mg/dL (LDL-C of <70 mg/dL) is considered a therapeutic option. Blood BLOOD SPECIMEN / Unknown 08/09/2024 8:22 AM CDT 08/09/2024 8:24 AM CDT Narrative [facility] - 08/10/2024 4:09 AM CDT FASTING:YES FASTING: YES Sayra Gandhi DO CHEMISTRY Final Result nGame [facility] [address] [place] [address], [facility] [id number] [place] [address] * VITAMIN D 25 (DEFICIENCY) (08/09/2024 8:22 AM CDT) Pathologist [facility] VITAMIN D,25-OH,TOTAL,IA 67 30 - 100 ng/mL [facility] Comment: Vitamin D Status 25-OH Vitamin D: Deficiency: <20 ng/mL Insufficiency: 20 - 29 ng/mL Optimal: > or = 30 ng/mL For 25-OH Vitamin D testing on patients on D2-supplementation and patients for whom quantitation of D2 and D3 fractions is required, the [facility](TM) 25-OH VIT D, (D2,D3), LC/MS/MS is recommended: order code 58789 (patients >2yrs). See Note 1 Note 1 For additional information, please refer to http://education.Vinylmint/faq/LMS765 (This link is being provided for informational/ educational purposes only.) Blood BLOOD SPECIMEN / Unknown 08/09/2024 8:22 AM CDT 08/09/2024 8:24 AM CDT Narrative [facility] - 08/10/2024 5:16 AM CDT FASTING:YES FASTING: YES Sayra Gandhi DO SEND OUTS Final Result [facility] [address] [place] [address], [facility] [address] [place] [address] * (ABNORMAL) CBC AND DIFFERENTIAL (08/09/2024 8:22 AM CDT) [facility] WHITE BLOOD CELL COUNT 11.2(H) 3.8 - 10.8 Thousand/u L [facility] RED BLOOD CELL COUNT 4.45 3.80 - 5.10 Million/uL [facility] HEMOGLOBIN 13.0 11.7 - 15.5 [...] 08/10/2024 2:26 AM CDT FASTING:YES FASTING: YES us Sayra Gandhi DO HEMATOLOGY Final Result Performing Organization Address [facility]/ZIP Co de Phone Number nGame [facility] [address] [place] [address], [facility] [address] [place] [address] * MAGNESIUM (08/09/2024 8:22 AM CDT) [facility] MAGNESIUM 2.0 1.5 - 2.5 mg/dL [facility] Blood BLOOD SPECIMEN / Unknown 08/09/2024 8:22 AM CDT 08/09/2024 8:24 AM CDT Narrative [facility] - 08/10/2024 4:09 AM CDT FASTING:YES FASTING: YES us Sayra Gandhi DO CHEMISTRY Final Result Performing Organization Address City/[facility]/ZIP Co de Phone Number nGame [facility] [address] [place] [address], [place] [phone] [facility] [address] [place] [address] * FERRITIN (08/09/2024 8:22 AM CDT) FERRITIN 18 16 - 232 ng/mL [facility] Blood BLOOD SPECIMEN / Unknown 08/09/2024 8:22 AM CDT 08/09/2024 8:24 AM CDT Narrative [facility] - 08/10/2024 5:16 AM CDT FASTING:YES FASTING: YES us Sayra Gandhi DO CHEMISTRY Final Result Performing Organization Address City/[facility]/ZIP Co de Phone Number nGame [facility] [address] [place] [address], [place] [phone] [facility] [address] [place] [address] * (ABNORMAL) VITAMIN B12 (08/09/2024 8:22 AM CDT) VITAMIN B12 1,179(H) 200 - 1,100 pg/mL [facility] Blood BLOOD SPECIMEN / Unknown 08/09/2024 8:22 AM CDT 08/09/2024 8:24 AM CDT Narrative [facility] - 08/10/2024 5:16 AM CDT FASTING:YES FASTING: YES us Sayra Gandhi DO CHEMISTRY Final Result Performing Organization Address [facility]/ZIP Co de Phone Number nGame [facility] [address] [place] [address], [facility] [address] [place] [address] * COMP METABOLIC PANEL (08/09/2024 8:22 AM CDT) GLUCOSE 80 65 - 99 mg/dL [facility] Comment: Fasting reference interval UREA NITROGEN (BUN) 13 7 - 25 mg/dL [facility] CREATININE 0.74 0.50 - 0.99 mg/dL [facility] EGFR 102 > OR = 60 mL/min/1. 73m2 [facility] BUN/CREATININE RATIO SEE NOTE: 6 - 22 (calc) [facility] Comment: Not [...] 1.0 - 2.5 (calc) [facility] BILIRUBIN, TOTAL 0.4 0.2 - 1.2 mg/dL [...] YES Sayra Gandhi DO CHEMISTRY Final Result nGame [facility] [address] [place] [address], [facility] [address] [place] [address] * XR SPINE CERVICAL 2 VIEWS FLEXION [...] CERVICAL 2 VIEWS FLEXION AND EXTENSION LOCATION: [facility] DATE: 08/02/2024 INDICATION: Pain Of [...] SPINE CERVICAL 2 VIEWS FLEXIONAND EXTENSION LOCATION: [facility] DATE: 08/02/2024 INDICATION: Pain Of [...] CERVICAL 2 VIEWS FLEXION AND EXTENSION LOCATION: [facility] DATE: 08/02/2024 INDICATION: Pain Of [...] SPINE CERVICAL 2 VIEWS FLEXIONAND EXTENSION LOCATION: [facility] DATE: 08/02/2024 INDICATION: Pain Of Lumbar Spine [...] RUSTY for saved images of the injection. Melvin Hernández MD PROCEDURE ORD Final Resu lt * ANTI HCV (05/22/2010 9:48 AM YARD LABORER) ANTI HCV Non-reacti ve [facility] Blood specimen (specimen) BLOOD SPECIMEN / Unknown 05/22/2010 9:48 AM YARD LABORER 05/22/2010 9:40 AM YARD LABORER us Courtney Loyd NP SEND OUTS Final Result [facility] INTERNAL ZIP [phone] [address] * ANTI HIV 1/2 (05/22/2010 9:48 AM YARD LABORER) ANTI HIV 1/2 Non-reacti ve [facility] Blood specimen (specimen) BLOOD SPECIMEN / Unknown 05/22/2010 9:48 AM YARD LABORER 05/22/2010 9:40 AM YARD LABORER us Courtney Loyd NP SEND OUTS Final Result [facility] INTERNAL ZIP [phone] [address] from Last 3 Months or Most Recently Relevant to Health Maintenance Insurance MEDICAID [employer] MEDICAID Advance Directives * Full Code (Latest [...] 3:04 PM 12/17/2015 6:18 PM Care Teams Wall To Wall Carpet Installer Relationship Specialty Start Date End Date HiramSayra DO [address] [place] [address] PCP - General Internal Medicine 11/20/15 Pramod Butler MD [address] [place] [address] Consulting Physician Surgery - General 08/15/21 Jennifer Avila MD [address] [place] [address] Hematology Hematology and Oncology 11/26/21 Sushma Trivedi, DENSITOMETRIST [address] [place] [address] Nurse Practitioner Hematology and Oncology - Pediatric 11/26/21 Yessica Rodriguez RN [address] [address] Steel Loader Registered Nurse 08/15/[address] [address] Registered Dietitian Director Of Strategic Sales 08/15/21 Kira Cooley PA [address] [address] Physician Vacuum Pan Operator 09/23/22
== END 2024-09-15 13:30 | disposition home or self-care (01) ==
LOC: INJ CL 13:29
PROVIDERS: PCP Internal Medicine; Visit Provider Family Medicine
DX: M54.16 Radiculopathy, lumbar region (principal); M51.369 Other intervertebral disc degeneration, lumbar region without mention of lumbar back pain or lower extremity pain
CPT/HCPCS: 64483; J1100; Q9966

== ENCOUNTER 2024-11-09 08:15 | Outpatient (RCR) | payer BC, MEDICAID, SELFPAY | END 2025-02-21 17:04 | disposition home or self-care (01) | PROVIDERS: PCP Internal Medicine; Visit Provider Internal Medicine | DX: H81.12 Benign paroxysmal vertigo, left ear (principal); Z51.89 Encounter for other specified aftercare | CPT/HCPCS: 95992; 97112; 97161 ==